=== PATIENT | female | born 1985 | race Caucasian/White ===

== ENCOUNTER 2021-11-07 22:19 | Inpatient (IN) | payer OTHER, MEDICAID, SELFPAY ==
[2021-11-07 22:31] VITALS: BP 124/75; PULSE 122; RESP 20; TEMP 36.6; O2SAT 91; BMI 55.7
--- NOTE | 2021-11-07 23:11 | DI.RAD.S_ITS ---
PROCEDURE: XR CHEST 1V INDICATIONS: shortness of breath TECHNIQUE: One view of the chest was acquired. COMPARISON: None. FINDINGS: Surgical changes and devices: None. Lungs and pleura: Diffuse interstitial prominence. Patchy opacities of the bilateral mid and lower lung zones. Suggestion of pulmonary vascular congestion. No focal consolidations. Small bilateral pleural effusions larger on the left. No pneumothorax. Mediastinum: Mediastinal contours appear normal. Heart size is enlarged. Bones and chest wall: No suspicious bony lesions. Overlying soft tissues appear unremarkable. IMPRESSION: Mild cardiomegaly with findings suggestive of pulmonary edema/CHF. Concurrent infectious or inflammatory process not excluded if clinically appropriate. Dictated by: Asim Rodriguez M.D. on 11/07/2021 at 23:42 Approved by: Asim Rodriguez M.D. on 11/07/2021 at 23:43
[2021-11-07 23:13] VITALS: PULSE 122; O2SAT 88
[2021-11-07 23:30] VITALS: BP 111/65; PULSE 119; O2SAT 93
[2021-11-07 23:40] LABS: Add Manual Diff / Slide Review NO; Basophils Absolute Auto 0 /uL (0-100); Basophils Percent Auto 0.1 % (0-2); Eosinophils Absolute Auto 0 /uL (0-450); Hematocrit 38.4 % (36-46); Hemoglobin 13.1 g/dL (12.0-16.0); Lymphocytes Absolute Auto 500 /uL (1100-4500); Lymphocytes Percent Auto 11.4 % (25-40); Mean Corpuscular HGB Conc 34.1 % (30-36); Mean Corpuscular Hemoglobin 29.1 PG (26-34); Mean Corpuscular Volume 85.4 fL (80-100); Monocytes Absolute Auto 100 /uL (0-900); Monocytes Percent Auto 2.6 % (3-14); Neutrophils Absolute Auto 3800 /uL (1500-7000); Neutrophils Percent Auto 85.9 % (50-75); Platelet Count 154 X10^3/uL (150-400); White Blood Cell Count 4.4 X10^3/uL (4.5-11.0)
[2021-11-07 23:45] VITALS: PULSE 112; O2SAT 94
[2021-11-07 23:47] LABS: Lactate (Lactic Acid) 1.3 mmol/L (0.7-2.1)
[2021-11-07 23:48] LABS: Alanine Aminotransferase 49 IU/L (<35); Albumin Globulin Ratio 1.2 (1.0-2.8); Alkaline Phosphatase 67 U/L (38-126); Aspartate Aminotransferase 57 IU/L (14-36); BUN Creatinine Ratio 9.4 (6-22); Bilirubin Total 0.5 mg/dL (0.2-1.3); Blood Urea Nitrogen 6 mg/dL (7-17); Calcium 8.9 mg/dL (8.4-10.2); Carbon Dioxide 29 mmol/L (22-32); Chloride 102 mmol/L (98-107); Estimated Glomerular Filt Rate > 60.0 mL/min (>60); Globulin 3.4 g/dL (1.7-4.1); Glucose 122 mg/dL (70-100); HEMOLYSIS < 15 (0-50); Potassium 3.9 mmol/L (3.4-5.1); Sodium 136 mmol/L (137-145); Total Protein 7.4 g/dL (6.3-8.2)
[2021-11-08] VITALS (68 sets, daily range): BP systolic 101–154; BP diastolic 56–94; PULSE 75–133; RESP 16–32; TEMP 37–37.5; O2SAT 86–97; BMI 55.6
[2021-11-08] MEDS: SODIUM CHLORIDE 0.9% 1,000 ML 1000 ML IV (00:31)
[2021-11-08 01:26] LABS: Lactate Dehydrogenase 824 U/L (313-618)
[2021-11-08 01:31] LABS: D Dimer < 200 ng/mL (<230)
[2021-11-08 02:11] LABS: Ferritin 225 ng/mL (6-137)
[2021-11-08] MEDS: DEXAMETHASONE 10 MG/ML VIAL 6 MG IV (03:14)
--- NOTE | 2021-11-08 05:36 | ED_ITS ---
HPI - URI/Sore Throat General Chief Complaint: Upper Respiratory Symptoms Stated Complaint: covid+/sob cough x5 days Time Seen by Provider: 11/07/21 22:51 Source: patient Mode of arrival: Ambulatory History of Present Illness HPI Narrative: 36-year-old female nonsmoker with history of asthma presents with a chief complaint of upwards of 1 week of increasing fatigue and shortness of breath with racing heart. She is unvaccinated and has been exposed to COVID. She was diagnosed as COVID positive over the week and and has seen her primary care provider but over the past day or 2 started having increasing shortness of breath with minimal exertion and because she lives on the [place] wanted to come and be seen. She has had subjective fever and chills, shortness of breath and racing are with some mild nausea. She denies any vomiting or diarrhea. She has been checking her pulse ox at home and frequently noted dipping into the 80s while at rest Related Data Home Medications Medication Instructions Recorded Confirmed diclofenac sodium 75 mg 75 mg PO BID 11/08/21 11/08/21 tablet,delayed release methocarbamol 750 mg tablet 750 mg PO Q6HR PRN 11/08/21 11/08/21 Allergies Allergy/AdvReac Type Severity Reaction Status Date / Time No Known Drug Allergies Allergy Verified 11/08/21 00:09 Review of Systems Review of Systems Narrative: GENERAL: See HPI HEENT: Denies sinus pain, ear pain, sore throat, difficulty swallowing, dizz iness. RESPIRATORY: See HPI CARDIOVASCULAR: Denies chest pain, palpitations, orthopnea, edema, GASTROINTESTINAL: Denies nausea, vomiting, abdominal pain, diarrhea, constipation, melena. : Denies dysuria, frequency, incontinence, hematuria, urinary retention. MUSCULOSKELETAL: denies weakness, joint pain, or bony pain SKIN: Denies rash, skin lesions, or other NEUROLOGIC: Denies weakness, headache, numbness, change in speech, confusion, seizures, incoordination. PSYCHIATRIC: No concerning psychosocial issues. 12 point review of systems is negative except for those stated above Patient History Family History (Updated 11/08/21 @ 12:53 by Damari Worthy MD) Mother Skin cancer Social History household members: spouse and family Smoking Status: Never smoker alcohol intake: current Smoking Status: Never smoker alcohol intake frequency: a few times a month Substance Use Type: does not use Exam Narrative Exam Narrative: GENERAL: [36 year old patient appears stated age. Well-developed patient, in mild distress. Increased work of breathing while at rest HEAD: Atraumatic. Normocephalic. EYES: Pupils equal round and reactive. Extraocular motions intact. No scleral icterus. No injection or drainage. ENT: Nose without bleeding, purulent drainage. Throat without erythema, tonsillar hypertrophy or exudate. Airway patent. NECK: Trachea midline. Non tender CARDIOVASCULAR: Tachycardic regular rhythm without murmurs, gallops, or rubs. RESPIRATORY: Slight increased work of breathing, faint crackles in bilateral bases, hypoxemic on room air to the mid to upper 80s GASTROINTESTINAL: Abdomen soft, non-tender, nondistended. EXTREMITIES: No edema or joint tenderness. BACK: Nontender without deformity or crepitance. No flank tenderness. NEURO: AOx3. SKIN: No rash or erythema of visible areas Initial Vital Signs Initial Vital Signs: Vital Signs Temperature 97.9 F 11/07/21 22:31 Pulse Rate 122 H 11/07/21 22:31 Respiratory Rate 20 11/07/21 22:31 Blood Pressure 124/75 11/07/21 22:31 Pulse Oximetry 91 11/07/21 22:31 Course Orders Ordered: Alprazolam (Alprazolam 0.25 Mg Tablet) 0.25 mg PO Q6H PRN PRN Reason: Anxiety Last Admin: 11/09/21 00:06 Dose: 0.25 mg Documented by: CWHITE Dexamethasone (Dexamethasone 10 Mg/Ml Vial) 6 mg IV DAILY [facility] Enoxaparin Sodium (Enoxaparin 40 Mg/0.4 Ml Syringe) 40 mg SUBCUT Q12HR [facility] Last Admin: 11/09/21 00:05 Dose: 40 mg Documented by: CWHITE Furosemide (Furosemide 20 Mg/2 Ml Vial) 20 mg IV DAILY [facility] Guaifenesin (Guaifenesin Er 600 Mg Tab) 600 mg PO Q12HR PRN PRN Reason: Cough Last Admin: 11/08/21 14:44 Dose: 600 mg Documented by: SHAMEKA Remdesivir 100 mg/ Sodium (Chloride) 250 mls @ 250 mls/hr IV DAILY [facility] Stop: 11/17/21 09:59 Discontinued Medications Dexamethasone (Dexamethasone 10 Mg/Ml Vial) 6 mg IV NOW ONE Stop: 11/08/21 03:05 Last Admin: 11/08/21 03:14 Dose: 6 mg Documented by: SALOME Enoxaparin Sodium (Enoxaparin 40 Mg/0.4 Ml Syringe) 40 mg SUBCUT DAILY [facility] Last Admin: 11/08/21 14:44 Dose: 40 mg Documented by: SHAMEKA Sodium Chloride (Normal Saline 0.9%) 1,000 mls @ 1,000 mls/hr IV BOLUS ONE Stop: 11/08/21 00:58 Last Infusion: 11/08/21 04:29 Dose: 0 mls/hr Documented by: Admin: 11/08/21 00:31 Dose: 1,000 mls/hr Documented by: TRAV Remdesivir 200 mg/ Sodium (Chloride) 250 mls @ 250 mls/hr IV NOW ONE Stop: 11/08/21 06:44 Last Infusion: 11/08/21 08:04 Dose: 0 mls/hr Documented by: Admin: 11/08/21 06:29 Dose: 250 mls/hr Documented by: SALOME Pantoprazole Sodium (Pantoprazole 40 Mg Vial) 40 mg IV NOW ONE Stop: 11/08/21 05:46 Last Admin: 11/08/21 06:31 Dose: 40 mg Documented by: SALOME Vital Signs Vital signs: Vital Signs - 8 hr 11/07/21 23:13 11/07/21 23:30 11/08/21 03:17 Temperature 99.5 F Pulse Rate 122 H 119 H Blood Pressure 111/65 Pulse Oximetry 88 L 93 MDM - URI/Sore Throat Lab Data Result diagrams: 11/07/21 23:25 11/07/21 23:25 Labs: Lab Results 11/07/21 11/07/21 11/07/21 Range/Units 23:25 23:25 23:25 WBC 4.4 L (4.5-11.0) X10^3/uL RBC 4.50 (4.0-5.2) X10^6/uL Hgb 13.1 (12.0-16.0) g/dL Hct 38.4 (36-46) % MCV 85.4 (80-100) fL MCH 29.1 (26-34) PG MCHC 34.1 (30-36) % RDW 14.0 (11.6-14.8) % Plt Count 154 (150-400) X10^3/uL Neut % (Auto) 85.9 H (50-75) % Lymph % (Auto) 11.4 L (25-40) % [place] % (Auto) 2.6 L (3-14) % Eos % (Auto) 0.0 L (2-4) % Baso % (Auto) 0.1 (0-2) % Neut # (Auto) 3800 (4963-8908) /uL Lymph # (Auto) 500 L (7627-9699) /uL [place] # (Auto) 100 (0-900) /uL Eos # (Auto) 0 (0-450) /uL Baso # (Auto) 0 (0-100) /uL D-Dimer (<230) ng/mL Sodium 136 L (137-145) mmol/L Potassium 3.9 (3.4-5.1) mmol/L Chloride 102 (98-107) mmol/L Carbon Dioxide 29 (22-32) mmol/L BUN 6 L (7-17) mg/dL Creatinine 0.64 (0.52-1.04) mg/dL Estimated GFR > 60.0 (>60) mL/min BUN/Creatinine Ratio 9.4 (6-22) Glucose 122 H (70-100) mg/dL Lactate 1.3 (0.7-2.1) mmol/L Calcium 8.9 (8.4-10.2) mg/dL Ferritin (6-137) ng/mL Total Bilirubin 0.5 (0.2-1.3) mg/dL AST 57 H (14-36) IU/L ALT 49 H (<35) IU/L Alkaline Phosphatase 67 (38-126) U/L Lactate Dehydrogenase (313-618) U/L Total Protein 7.4 (6.3-8.2) g/dL Albumin 4.0 (3.5-5.0) g/dL Globulin 3.4 (1.7-4.1) g/dL Albumin/Globulin Ratio 1.2 (1.0-2.8) 11/07/21 11/07/21 Range/Units 23:25 23:25 WBC (4.5-11.0) X10^3/uL RBC (4.0-5.2) X10^6/uL Hgb (12.0-16.0) g/dL Hct (36-46) % MCV (80-100) fL MCH (26-34) PG MCHC (30-36) % RDW (11.6-14.8) % Plt Count (150-400) X10^3/uL Neut % (Auto) (50-75) % Lymph % (Auto) (25-40) % [place] % (Auto) (3-14) % Eos % (Auto) (2-4) % Baso % (Auto) (0-2) % Neut # (Auto) (5973-8148) /uL Lymph # (Auto) (1073-3304) /uL [place] # (Auto) (0-900) /uL Eos # (Auto) (0-450) /uL Baso # (Auto) (0-100) /uL D-Dimer < 200 (<230) ng/mL Sodium (137-145) mmol/L Potassium (3.4-5.1) mmol/L Chloride (98-107) mmol/L Carbon Dioxide (22-32) mmol/L BUN (7-17) mg/dL Creatinine (0.52-1.04) mg/dL Estimated GFR (>60) mL/min BUN/Creatinine Ratio (6-22) Glucose (70-100) mg/dL Lactate (0.7-2.1) mmol/L Calcium (8.4-10.2) mg/dL Ferritin 225 H (6-137) ng/mL Total Bilirubin (0.2-1.3) mg/dL AST (14-36) IU/L ALT (<35) IU/L Alkaline Phosphatase (38-126) U/L Lactate Dehydrogenase 824 H (313-618) U/L Total Protein (6.3-8.2) g/dL Albumin (3.5-5.0) g/dL Globulin (1.7-4.1) g/dL Albumin/Globulin Ratio (1.0-2.8) Discharge Plan Departure Patient Disposition: Admitted As Inpatient Clinical Impression: COVID-19, Hypoxia Admit Date/Time: 11/08/21 09:56 Admit Provider: Damari Worthy
[2021-11-08] MEDS: REMDESIVIR 200 MG in SODIUM CHLORIDE 0.9% 210 ML 250 ML IV (06:29)
[2021-11-08] MEDS: PANTOPRAZOLE 40 MG VIAL IV (06:31)
--- NOTE | 2021-11-08 12:48 | P.HP_ITS ---
History of Present Illness History of Present Illness Date Patient Seen: 11/08/21 Time Patient Seen: 12:49 Chief complaint: covid+/sob cough x5 days Narrative: 36 y/o unvaccinated female with Morbid Obesity diagnosed with Covid about one week ago. ( By her PCP). She has had cough, fever, shortness of breath, headache, nausea, and diarrhea. The patient obtained a home O2 sat monitor and noted that her oxygen level fell to 80%. She was becoming more short of breath and presented to the ED for further evaluation. In the Emergency Department, she was given decadron and remdesivir. She was initially placed on 6 liters of oxygen but continue to desaturate, she was then placed on 50% High flow oxygen at 50 Liters with improvement of her oxygenation. HER WBC is 4.4, D-dimer less than 200, Chest Xray reveals the following: Mild cardiomegaly with findings suggestive of pulmonary edema/CHF.? Concurrent infectious or inflammatory process not excluded if clinically appropriate. ?Patient is admitted to the hospital for inpatient treatment of acute hypoxic respiratory failure secondary to Covid-19 pneumonia. Patient History Family & Social History Family History (Updated 11/08/21 @ 12:53 by Damari Worthy MD) Mother Skin cancer Safety & Behavioral: Feels Safe in Current Yes Environment Tobacco & Substance use: Smoking Status Never smoker alcohol intake frequency a few times a month Substance Use Type does not use Meds Home Medications and Allergies Home Medications Medication Instructions Recorded Confirmed Type diclofenac sodium 75 mg 75 mg PO BID 11/08/21 11/08/21 History tablet,delayed release methocarbamol 750 mg tablet 750 mg PO Q6HR PRN 11/08/21 11/08/21 History Allergies Allergy/AdvReac Type Severity Reaction Status Date / Time No Known Drug Allergies Allergy Verified 11/08/21 00:09 Review of Systems Review of Systems Narrative: 10 point review of system negative except as above Exam Vital Signs (past 8 hours): - 11/08/21 05:00 11/08/21 05:15 11/08/21 05:30 Pulse Rate 132 H 125 H 122 H Respiratory Rate Blood Pressure Pulse Oximetry 88 L 89 L 91 11/08/21 05:45 11/08/21 06:00 11/08/21 06:15 Pulse Rate 122 H 126 H 126 H Respiratory Rate Blood Pressure Pulse Oximetry 92 90 L 91 11/08/21 06:30 11/08/21 06:45 11/08/21 07:00 Pulse Rate 119 H 114 H 110 H Respiratory Rate Blood Pressure Pulse Oximetry 90 L 91 89 L 11/08/21 07:15 11/08/21 07:30 11/08/21 07:45 Pulse Rate 111 H 112 H 121 H Respiratory Rate Blood Pressure Pulse Oximetry 90 L 90 L 89 L 11/08/21 07:57 11/08/21 08:00 11/08/21 08:15 Pulse Rate 121 H 121 H 124 H Respiratory Rate Blood Pressure 130/67 Pulse Oximetry 89 L 90 L 86 L 11/08/21 08:30 11/08/21 08:45 11/08/21 09:00 Pulse Rate 112 H 110 H 117 H Respiratory Rate Blood Pressure Pulse Oximetry 89 L 89 L 89 L 11/08/21 09:15 11/08/21 09:30 11/08/21 09:45 Pulse Rate 114 H 117 H 111 H Respiratory Rate Blood Pressure 122/63 Pulse Oximetry 90 L 87 L 87 L 11/08/21 10:00 11/08/21 10:15 11/08/21 10:30 Pulse Rate 104 H 111 H 99 H Respiratory Rate 24 Blood Pressure 116/59 L 120/67 Pulse Oximetry 90 L 91 92 11/08/21 10:45 11/08/21 11:00 11/08/21 11:15 Pulse Rate 99 H 97 H 99 H Respiratory Rate Blood Pressure 114/67 Pulse Oximetry 93 93 96 11/08/21 11:30 11/08/21 11:45 Pulse Rate 101 H 102 H Respiratory Rate Blood Pressure 110/56 L Pulse Oximetry 94 95 Oxygen Delivery Method High Flow Nasal Cannula Oxygen Flow Rate 50 Narrative Exam Narrative: Obese Female Lying on her stomach in no distress on high flow oxygen HENMT Other: NC/AT, PERRL, EOMI, ORopharynx with moist mucus membranes, Neck Other: Neck supple, no adenopathy, no thyromegaly Resp Other: Decreased breath sounds with poor airway movement, no wheezing, rhonchi, or crackles Cardio Other: Tachycardic, normal Sl S2 no murmurs, rubs, or gallops GI Other: soft/ non tender/ non distended No hepatosplenomegaly no rebound tenderness Skin Other: Multiple tattoos of arms and legs Neuro Other: Non focal Extrem Other: no edema Objective Labs Result Diagrams: 11/07/21 23:25 11/07/21 23:25 Labs: Laboratory Results - last 24 hr 11/07/21 11/07/21 11/07/21 23:25 23:25 23:25 WBC 4.4 L RBC 4.50 Hgb 13.1 Hct 38.4 MCV 85.4 MCH 29.1 MCHC 34.1 RDW 14.0 Plt Count 154 Neut % (Auto) 85.9 H Lymph % (Auto) 11.4 L [place] % (Auto) 2.6 L Eos % (Auto) 0.0 L Baso % (Auto) 0.1 Neut # (Auto) 3800 Lymph # (Auto) 500 L [place] # (Auto) 100 Eos # (Auto) 0 Baso # (Auto) 0 D-Dimer Sodium 136 L Potassium 3.9 Chloride 102 Carbon Dioxide 29 BUN 6 L Creatinine 0.64 Estimated GFR > 60.0 BUN/Creatinine Ratio 9.4 Glucose 122 H Lactate 1.3 Calcium 8.9 Ferritin Total Bilirubin 0.5 AST 57 H ALT 49 H Alkaline Phosphatase 67 Lactate Dehydrogenase Total Protein 7.4 Albumin 4.0 Globulin 3.4 Albumin/Globulin Ratio 1.2 11/07/21 11/07/21 23:25 23:25 WBC RBC Hgb Hct MCV MCH MCHC RDW Plt Count Neut % (Auto) Lymph % (Auto) [place] % (Auto) Eos % (Auto) Baso % (Auto) Neut # (Auto) Lymph # (Auto) [place] # (Auto) Eos # (Auto) Baso # (Auto) D-Dimer < 200 Sodium Potassium Chloride Carbon Dioxide BUN Creatinine Estimated GFR BUN/Creatinine Ratio Glucose Lactate Calcium Ferritin 225 H Total Bilirubin AST ALT Alkaline Phosphatase Lactate Dehydrogenase 824 H Total Protein Albumin Globulin Albumin/Globulin Ratio Assessment & Plan Assessment & Plan narrative: 36 y/o female unvaccinated COVID-19 + admitted for Acute Hypoxic Respiratory Failure -Patient is markedly hypoxic, now requiring high-flow oxygen -inflammatory markers elevated to include, LDH 824, Ferritin 124 -d-DIMER Normal -will continue dexamethasone, remdesivir -will add baricitnib -Lovenox for DVT prophylaxis -patient indicates she would want intubation/tracheostomy/if needed. -I have utilized all available methods to review, update, and confirm the patients current medications. -Patient will be admitted as an inpatient COVID-19 COVID-19 status: Positive Time Spent With Patient Critical Care time: I spent a total of [] minutes of critical care time on this patient's care today; this time is exclusive of procedural time. Quality MIPS - Admit I confirm the patient?s Advance Care Plan is present, Code status is documented, Surrogate decision maker is in patient?s record [If Yes, STOP here]: Yes
--- NOTE | 2021-11-08 13:57 | DI.US.S_ITS ---
PROCEDURE: US PERIPH VENOUS LOW EXTREM BI INDICATIONS: Swelling TECHNIQUE: Real-time imaging, as well as color and pulse Doppler interrogation, were performed of the deep veins of both legs from the inguinal ligament to the popliteal fossa. COMPARISON: None. FINDINGS: Right: The common femoral, femoral and popliteal veins are normally compressible, and free of intraluminal thrombus. Color and pulse Doppler demonstrate normal phasic intravascular flow. There is normal augmentation response to distal compression maneuver. Left: The common femoral, femoral and popliteal veins are normally compressible, and free of intraluminal thrombus. Color and pulse Doppler demonstrate normal phasic intravascular flow. There is normal augmentation response to distal compression maneuver. IMPRESSION: Negative for deep venous thrombosis in the bilateral lower extremities. Dictated by: Asim Rodriguez M.D. on 11/08/2021 at 21:26 Approved by: Asim Rodriguez M.D. on 11/08/2021 at 21:35
--- NOTE | 2021-11-08 14:06 | P.TELICUCN_ITS ---
History of Present Illness Consult details Chief complaint: covid+/sob cough x5 days :: This patient was seen via real time interactive two-way audiovisual telecommunication. Narrative: Patient is a 36 year old morbidly obese female presents with cough and shortness of breath. Patient was diagnosed with COVID-19 last week and noticed her oxygen saturation dipping down to the 80s on home oxygen saturation monitor. On presentation she was placed on 6 liters NC which quickly escalated to HFNC 50/50%. CXR personally reviewed -> patchy bilateral reticular changes. She was started on decadron, remdesivir, and baricitinib. Admitted to ICU for further management. FORMERLY [facility], [facility] Family History (Updated 11/08/21 @ 12:53 by Damari Worthy MD) Mother Skin cancer Social History Smoking Status: Never smoker Current Medications Current Medications Medications: Home Medications diclofenac sodium 75 mg tablet,delayed release 75 mg PO BID 11/08/21 [History Confirmed 11/08/21] methocarbamol 750 mg tablet 750 mg PO Q6HR PRN 11/08/21 [History Confirmed 11/08/21] Exam Vital Signs (past 8 hours): - 11/08/21 06:15 11/08/21 06:30 11/08/21 06:45 Pulse Rate 126 H 119 H 114 H Respiratory Rate Blood Pressure Pulse Oximetry 91 90 L 91 11/08/21 07:00 11/08/21 07:15 11/08/21 07:30 Pulse Rate 110 H 111 H 112 H Respiratory Rate Blood Pressure Pulse Oximetry 89 L 90 L 90 L 11/08/21 07:45 11/08/21 07:57 11/08/21 08:00 Pulse Rate 121 H 121 H 121 H Respiratory Rate Blood Pressure 130/67 Pulse Oximetry 89 L 89 L 90 L 11/08/21 08:15 11/08/21 08:30 11/08/21 08:45 Pulse Rate 124 H 112 H 110 H Respiratory Rate Blood Pressure Pulse Oximetry 86 L 89 L 89 L 11/08/21 09:00 11/08/21 09:15 11/08/21 09:30 Pulse Rate 117 H 114 H 117 H Respiratory Rate Blood Pressure Pulse Oximetry 89 L 90 L 87 L 11/08/21 09:45 11/08/21 10:00 11/08/21 10:15 Pulse Rate 111 H 104 H 111 H Respiratory Rate 24 Blood Pressure 122/63 116/59 L Pulse Oximetry 87 L 90 L 91 11/08/21 10:30 11/08/21 10:45 11/08/21 11:00 Pulse Rate 99 H 99 H 97 H Respiratory Rate Blood Pressure 120/67 114/67 Pulse Oximetry 92 93 93 11/08/21 11:15 11/08/21 11:30 11/08/21 11:45 Pulse Rate 99 H 101 H 102 H Respiratory Rate Blood Pressure 110/56 L Pulse Oximetry 96 94 95 11/08/21 12:00 11/08/21 12:01 11/08/21 12:15 Pulse Rate 111 H 113 H 101 H Respiratory Rate 24 Blood Pressure 149/66 H Pulse Oximetry 93 91 11/08/21 12:30 11/08/21 12:45 11/08/21 13:00 Pulse Rate 98 H 114 H 103 H Respiratory Rate Blood Pressure Pulse Oximetry 93 91 88 L 11/08/21 13:04 11/08/21 13:15 Pulse Rate 100 H 97 H Respiratory Rate Blood Pressure 101/58 L Pulse Oximetry 90 L 92 Oxygen Delivery Method High Flow Nasal Cannula Oxygen Flow Rate 50 Narrative Exam Narrative: Morbidly obese on HFNC and NAD Objective Labs Result Diagrams: 11/07/21 23:25 11/07/21 23:25 Labs: Laboratory Results - last 24 hr 11/07/21 11/07/21 11/07/21 23:25 23:25 23:25 WBC 4.4 L RBC 4.50 Hgb 13.1 Hct 38.4 MCV 85.4 MCH 29.1 MCHC 34.1 RDW 14.0 Plt Count 154 Neut % (Auto) 85.9 H Lymph % (Auto) 11.4 L [place] % (Auto) 2.6 L Eos % (Auto) 0.0 L Baso % (Auto) 0.1 Neut # (Auto) 3800 Lymph # (Auto) 500 L [place] # (Auto) 100 Eos # (Auto) 0 Baso # (Auto) 0 D-Dimer Sodium 136 L Potassium 3.9 Chloride 102 Carbon Dioxide 29 BUN 6 L Creatinine 0.64 Estimated GFR > 60.0 BUN/Creatinine Ratio 9.4 Glucose 122 H Lactate 1.3 Calcium 8.9 Ferritin Total Bilirubin 0.5 AST 57 H ALT 49 H Alkaline Phosphatase 67 Lactate Dehydrogenase Total Protein 7.4 Albumin 4.0 Globulin 3.4 Albumin/Globulin Ratio 1.2 11/07/21 11/07/21 23:25 23:25 WBC RBC Hgb Hct MCV MCH MCHC RDW Plt Count Neut % (Auto) Lymph % (Auto) [place] % (Auto) Eos % (Auto) Baso % (Auto) Neut # (Auto) Lymph # (Auto) [place] # (Auto) Eos # (Auto) Baso # (Auto) D-Dimer < 200 Sodium Potassium Chloride Carbon Dioxide BUN Creatinine Estimated GFR BUN/Creatinine Ratio Glucose Lactate Calcium Ferritin 225 H Total Bilirubin AST ALT Alkaline Phosphatase Lactate Dehydrogenase 824 H Total Protein Albumin Globulin Albumin/Globulin Ratio Assessment & Plan Assessment and plan (1) Acute respiratory failure with hypoxemia: Status: Acute (2) COVID-19: Status: Acute (3) Pneumonia due to coronavirus disease 2019: Status: Acute (4) Morbid obesity: Status: Acute Assessment & Plan narrative: RESP: # Acute hypoxemia respiratory failure -- Secondary to COVID pneumonia -- COVID rx as below -- Start gentle diuresis -- On HFNC 50/50% -- RT to titrate down FiO2 and flow to maintain goal SpO2 > 90% -- Encourage self proning -- Encourage early ambulation as tolerated to prevent atelectasis ID: # COVID PNA -- Trend CRP, LDH, ferritin, and LFTs -- Risk factors -> morbid obesity -- Agree with remdesivir, baricitinib and decadron -- Start gentle diuresis to seek net negative fluid balance -- Check venous duplex -- On strict contact, droplet/airborne, eye protection, and critical meticulous hand hygiene ENDO: -- Goal BS < 180] D/w RN at bedside. Time Spent With Patient Critical Care time: I spent a total of [] minutes of critical care time on this patient's care today; this time is exclusive of procedural time.
[2021-11-08 14:37] LABS: COVID19 - ADMIT (NP swab/PCR) POSITIVE (Negative)
[2021-11-08] MEDS: ENOXAPARIN 40 MG/0.4 ML SYRINGE SUBCUT (14:44)
[2021-11-08] MEDS: BARICITINIB 2 MG TABLET 4 MG PO (14:44)
[2021-11-08] MEDS: guaiFENesin ER 600 MG TAB PO (14:44)
--- NOTE | 2021-11-08 17:34 | PC.NURSE ---
Admit Note Patient arrived to room 227 from ER at 1415 via stretcher. Walked self from stretcher to bed with no issues. Placed on heated HFNC 50L and 50% FiO2, SpO2 93%. Pt reports shortness of breath improved. Productive and frequent cough, white/yellow sputum. Lungs decreased bilaterally. Oriented to room and to plan of care. Oriented to bed/tv/call light controls. Call light within reach. Wallet locked in hospital safe. Cell phone, glasses, electronic tablet, and chargers x2 at bedside. Purse, clothing, shoes in room closet. Tele ICU MD Dr. Haynes in room at time of admission via video monitor in room. Patient walking independently to bathroom, desats to 84% but quickly recovers to mid-90s.
[2021-11-09] VITALS (18 sets, daily range): BP systolic 115–146; BP diastolic 66–88; PULSE 86–114; RESP 13–23; TEMP 36.8–37.3; O2SAT 89–95
--- NOTE | 2021-11-09 00:01 | PM.ICURNDS ---
- Date Patient Seen: 11/09/21 Time Patient Seen: 00:00 :: This patient was seen via real time interactive two-way audiovisual telecommunication. Note: Morbidly obese vaccinated female with COVID-19 induced acute hypoxic respiratory failure being treated with remdesivir, dexamethasone and baricitinib. She is on HFNC 50L and 50% FiO2. This just had to be increased due to a desaturation event and anxiety; currently at 55 L/min 55% FiO2. Have order Xanax PRN; if this fails, will attempt Precedex drip. Enoxaparin VTE chemoprophylaxis increased to q12H due to body habitus, not COVID-19 (admission D-dimer < 500).
[2021-11-09] MEDS: ENOXAPARIN 40 MG/0.4 ML SYRINGE SUBCUT ×3 (00:05→23:21)
[2021-11-09] MEDS: ALPRAZolam 0.25 MG TABLET PO ×4 (00:06→23:22)
[2021-11-09 04:56] LABS: Add Manual Diff / Slide Review NO; Basophils Absolute Auto 0 /uL (0-100); Basophils Percent Auto 0.2 % (0-2); Eosinophils Absolute Auto 0 /uL (0-450); Eosinophils Percent Auto 0.1 % (2-4); Hematocrit 36.6 % (36-46); Hemoglobin 12.4 g/dL (12.0-16.0); Lymphocytes Absolute Auto 1500 /uL (1100-4500); Lymphocytes Percent Auto 37.6 % (25-40); Mean Corpuscular HGB Conc 33.8 % (30-36); Mean Corpuscular Hemoglobin 28.8 PG (26-34); Mean Corpuscular Volume 85.2 fL (80-100); Monocytes Absolute Auto 200 /uL (0-900); Monocytes Percent Auto 5.2 % (3-14); Neutrophils Absolute Auto 2300 /uL (1500-7000); Neutrophils Percent Auto 56.9 % (50-75); Platelet Count 158 X10^3/uL (150-400); Red Blood Cell Count 4.29 X10^6/uL (4.0-5.2); Red Cell Distribution Width 14.2 % (11.6-14.8)
[2021-11-09 05:03] LABS: Alanine Aminotransferase 43 IU/L (<35); Albumin 3.5 g/dL (3.5-5.0); Albumin Globulin Ratio 1.1 (1.0-2.8); Alkaline Phosphatase 55 U/L (38-126); Aspartate Aminotransferase 71 IU/L (14-36); BUN Creatinine Ratio 16.7 (6-22); Bilirubin Total 0.4 mg/dL (0.2-1.3); Blood Urea Nitrogen 11 mg/dL (7-17); Calcium 8.2 mg/dL (8.4-10.2); Carbon Dioxide 32 mmol/L (22-32); Chloride 100 mmol/L (98-107); Estimated Glomerular Filt Rate > 60.0 mL/min (>60); Globulin 3.2 g/dL (1.7-4.1); Glucose 96 mg/dL (70-100); HEMOLYSIS < 15 (0-50); Magnesium 2.4 mg/dL (1.6-2.3); Potassium 3.6 mmol/L (3.4-5.1); Sodium 135 mmol/L (137-145); Total Protein 6.7 g/dL (6.3-8.2)
[2021-11-09 05:32] LABS: Thyroid Stimulating Hormone 2.64 uIU/mL (0.47-4.68)
[2021-11-09] MEDS: guaiFENesin ER 600 MG TAB PO ×2 (08:31→20:06)
[2021-11-09] MEDS: REMDESIVIR 100 MG in SODIUM CHLORIDE 0.9% 230 ML 250 ML IV (08:31)
[2021-11-09] MEDS: DEXAMETHASONE 10 MG/ML VIAL 6 MG IV (08:31)
[2021-11-09] MEDS: FUROSEMIDE 20 MG/2 ML VIAL IV (08:31)
[2021-11-09] MEDS: BARICITINIB 2 MG TABLET 4 MG PO (08:31)
--- NOTE | 2021-11-09 09:40 | PM.PN.EICU ---
Subjective Subjective :: This patient was seen via real time interactive two-way audiovisual telecommunication. On HFNC 50/55%. Started on xanax for anxiety. No acute issues overnight. Current Medications Current Medications Medications: Home Medications diclofenac sodium 75 mg tablet,delayed release 75 mg PO BID 11/08/21 [History Confirmed 11/08/21] methocarbamol 750 mg tablet 750 mg PO Q6HR PRN 11/08/21 [History Confirmed 11/08/21] Visit Medications (administered) Generic Name Dose Route Start Last Admin Trade Name Freq PRN Reason Stop Dose Admin Alprazolam 0.25 mg 11/08/21 23:59 11/09/21 07:02 Alprazolam 0.25 Mg Tablet PO 0.25 mg Q6H PRN Administration Anxiety Dexamethasone 6 mg 11/09/21 09:00 11/09/21 08:31 Dexamethasone 10 Mg/Ml Vial IV 6 mg DAILY CORWIN Administration Enoxaparin Sodium 40 mg 11/09/21 00:00 11/09/21 00:05 Enoxaparin 40 Mg/0.4 Ml Syringe SUBCUT 40 mg Q12HR CORWIN Administration Furosemide 20 mg 11/09/21 09:00 11/09/21 08:31 Furosemide 20 Mg/2 Ml Vial IV 20 mg DAILY CORWIN Administration Guaifenesin 600 mg 11/08/21 14:32 11/09/21 08:31 Guaifenesin Er 600 Mg Tab PO 600 mg Q12HR PRN Administration Cough Remdesivir 100 mg/ Sodium 250 mls @ 250 mls/hr 11/09/21 09:00 11/09/21 08:31 Chloride IV 11/17/21 09:59 250 mls/hr DAILY CORWIN Administration Objective Ventilator Parameters: Ventilator Settings FiO2 50 Labs Result Diagrams: 11/09/21 04:30 11/09/21 04:30 Labs: Laboratory Results - last 24 hr 11/08/21 11/08/21 11/09/21 13:17 14:15 04:30 WBC 4.0 L RBC 4.29 Hgb 12.4 Hct 36.6 MCV 85.2 MCH 28.8 MCHC 33.8 RDW 14.2 Plt Count 158 Neut % (Auto) 56.9 D Lymph % (Auto) 37.6 D [place] % (Auto) 5.2 Eos % (Auto) 0.1 L Baso % (Auto) 0.2 Neut # (Auto) 2300 Lymph # (Auto) 1500 [place] # (Auto) 200 Eos # (Auto) 0 Baso # (Auto) 0 Sodium Potassium Chloride Carbon Dioxide BUN Creatinine Estimated GFR BUN/Creatinine Ratio Glucose Calcium Magnesium Total Bilirubin AST ALT Alkaline Phosphatase Total Protein Albumin Globulin Albumin/Globulin Ratio TSH Nasal Screen MRSA (PCR) Negative for mrsa SARS-CoV-2 (PCR) Positive H 11/09/21 11/09/21 04:30 04:30 WBC RBC Hgb Hct MCV MCH MCHC RDW Plt Count Neut % (Auto) Lymph % (Auto) [place] % (Auto) Eos % (Auto) Baso % (Auto) Neut # (Auto) Lymph # (Auto) [place] # (Auto) Eos # (Auto) Baso # (Auto) Sodium 135 L Potassium 3.6 Chloride 100 Carbon Dioxide 32 BUN 11 Creatinine 0.66 Estimated GFR > 60.0 BUN/Creatinine Ratio 16.7 Glucose 96 Calcium 8.2 L Magnesium 2.4 H Total Bilirubin 0.4 AST 71 H ALT 43 H Alkaline Phosphatase 55 Total Protein 6.7 Albumin 3.5 Globulin 3.2 Albumin/Globulin Ratio 1.1 TSH 2.64 Nasal Screen MRSA (PCR) SARS-CoV-2 (PCR) Exam Vital Signs (past 8 hours): - 11/09/21 01:59 11/09/21 04:00 11/09/21 05:55 Temperature 99.2 F Pulse Rate 102 H 91 H 86 Respiratory Rate 18 20 20 Blood Pressure 146/88 H 132/86 Pulse Oximetry 94 94 93 11/09/21 07:36 11/09/21 07:45 Temperature 98.7 F Pulse Rate 99 H 100 H Respiratory Rate 20 22 Blood Pressure 127/76 127/76 Pulse Oximetry 92 92 Fraction of Inspired Oxygen 55 Oxygen Delivery Method Heated High Flow Oxygen Flow Rate 50 Narrative Exam Narrative: Anxious and speaking in full sentence. Quality TeleICU VTE Deep Vein Thrombosis/Pulmonary Embolism Present on Admission: No Assessment & Plan Assessment & Plan narrative: RESP: # Acute hypoxemia respiratory failure -- Secondary to COVID pneumonia -- COVID rx as below -- Added xanax overnight for anxiety -- Cont gentle diuresis -- On HFNC 50/55% -- RT to titrate down FiO2 and flow to maintain goal SpO2 > 90% -- Cont self proning -- Encourage early ambulation as tolerated to prevent atelectasis ID: # COVID PNA -- Trend CRP, LDH, ferritin, and LFTs -- Risk factors -> morbid obesity -- Cont remdesivir, baricitinib and decadron --Cont gentle diuresis to seek net negative fluid balance -- Venous duplex negative for DVT -- On lovenox 40 BID -- On strict contact, droplet/airborne, eye protection, and critical meticulous hand hygiene ENDO: -- Goal BS < 180 D/w RN and RT Time Spent With Patient Critical Care time: I spent a total of [] minutes of critical care time on this patient's care today; this time is exclusive of procedural time.
[2021-11-09] MEDS: SODIUM CHLORIDE NASAL SPRAY 1 SPRAY NASAL (11:09)
[2021-11-09] MEDS: POTASSIUM CHLORIDE 20 MEQ TAB PO (11:09)
[2021-11-09] MEDS: LORazepam 2 MG/ML INJ 1 MG IV ×2 (14:01→20:05)
[2021-11-09 14:31] LABS: D Dimer 344 ng/mL (<230)
--- NOTE | 2021-11-09 15:52 | P.PN_ITS ---
Subjective Subjective Date Patient Seen: 11/09/21 Interval history: The patient is 36-year-old female unvaccinated admitted to the hospital with acute hypoxic respiratory failure due to COVID 19. Patient continues to require high-flow oxygen. She is pronating regularly. She is anxious at times. She does note that steroids tend to make her more anxious. She has no cough. She complains of feeling like she can not take a deep breath in. Exam Vital Signs (past 8 hours): - 11/09/21 09:33 11/09/21 11:00 11/09/21 11:39 Pulse Rate 105 H 105 H 106 H Respiratory Rate 20 22 Blood Pressure 138/84 138/84 Pulse Oximetry 95 94 93 11/09/21 13:00 11/09/21 13:29 Pulse Rate 94 H Respiratory Rate 20 Blood Pressure 138/84 Pulse Oximetry 92 93 Fraction of Inspired Oxygen 0.60 Oxygen Delivery Method Heated High Flow Oxygen Flow Rate 50 Narrative Exam Narrative: Obese female lying in bed in no obvious distress Resp Other: Lungs decreased breath sounds but clear to auscultation Cardio Other: Cardiac exam: Tachycardic regular rate and rhythm normal S1-S2 GI Other: Abdomen soft and nontender Extrem Other: Extremity no edema Objective Labs Result Diagrams: 11/09/21 04:30 11/09/21 04:30 Labs: Laboratory Results - last 24 hr 11/08/21 11/09/21 11/09/21 14:15 04:30 04:30 WBC 4.0 L RBC 4.29 Hgb 12.4 Hct 36.6 MCV 85.2 MCH 28.8 MCHC 33.8 RDW 14.2 Plt Count 158 Neut % (Auto) 56.9 D Lymph % (Auto) 37.6 D [place] % (Auto) 5.2 Eos % (Auto) 0.1 L Baso % (Auto) 0.2 Neut # (Auto) 2300 Lymph # (Auto) 1500 [place] # (Auto) 200 Eos # (Auto) 0 Baso # (Auto) 0 D-Dimer Sodium 135 L Potassium 3.6 Chloride 100 Carbon Dioxide 32 BUN 11 Creatinine 0.66 Estimated GFR > 60.0 BUN/Creatinine Ratio 16.7 Glucose 96 Calcium 8.2 L Magnesium 2.4 H Total Bilirubin 0.4 AST 71 H ALT 43 H Alkaline Phosphatase 55 Total Protein 6.7 Albumin 3.5 Globulin 3.2 Albumin/Globulin Ratio 1.1 TSH Nasal Screen MRSA (PCR) Negative for mrsa 11/09/21 11/09/21 04:30 14:15 WBC RBC Hgb Hct MCV MCH MCHC RDW Plt Count Neut % (Auto) Lymph % (Auto) [place] % (Auto) Eos % (Auto) Baso % (Auto) Neut # (Auto) Lymph # (Auto) [place] # (Auto) Eos # (Auto) Baso # (Auto) D-Dimer 344 H Sodium Potassium Chloride Carbon Dioxide BUN Creatinine Estimated GFR BUN/Creatinine Ratio Glucose Calcium Magnesium Total Bilirubin AST ALT Alkaline Phosphatase Total Protein Albumin Globulin Albumin/Globulin Ratio TSH 2.64 Nasal Screen MRSA (PCR) PFSH Family History (Updated 11/08/21 @ 12:53 by Damari Worthy MD) Mother Skin cancer Social History household members: spouse and family Smoking Status: Never smoker alcohol intake: current Assessment & Plan Assessment & Plan narrative: 36 y/o female unvaccinated COVID-19 + admitted for Acute Hypoxic Respiratory F ailure -Patient is markedly hypoxic, now requiring high-flow oxygen -inflammatory markers elevated to include, LDH 824, Ferritin 124 -d-DIMER Normal, increased to 334 today, on BID dosing of lovenox -will continue dexamethasone, remdesivir -will add baricitnib -Lovenox for DVT prophylaxis -patient indicates she would want intubation/tracheostomy/if needed. Anxiety -ativan as needed Morbid Obesity -dietary consult -I have utilized all available methods to review, update, and confirm the patients current medications. -Patient will be admitted as an inpatient Time Spent With Patient Critical Care time: I spent a total of [] minutes of critical care time on this patient's care today; this time is exclusive of procedural time. Quality VTE Deep Vein Thrombosis/Pulmonary Embolism Present on Admission: No
--- NOTE | 2021-11-09 16:23 | CM.DANOTE ---
DCP/Assessment: Reviewed chart. Patient is a 36yr old female admitted to [facility] with COVID+. PCP is [facility]) on [place]. Primary payor is 1[facility] 2)Medicaid. Spoke briefly with RN this afternoon. Patient currently on 50 liters of heated high flow 02. At this time it is not appropriate for CM food service team member to call patient in room. RN reports patient somewhat anxious. Patient obese and weighs approximately 376lbs. RN believes that patient very I prior to admit. Patient has child and significant other at home, both whom are currently sick. P: Anticipate home when stable. CM team following closely for d/c planning needs. [facility] Discharge Planning/Care Management CM Discharge Assessment Start: 11/09/21 16:20 Freq: Status: Active Protocol: Document 11/09/21 16:21 [facility] (Rec: 11/09/21 16:23 [facility] [id number]) Discharge Planning Assessment Assigned Silk Soaker BRAXTON [place] Contact Information Koby Daugherty (significant other) # [phone] Advance Directives? No History Provided By Medical Record Prior Living Arrangements House Household Members spouse,family Type of transporation used prior to Drives own vehicle admit Independent with ADL's Yes Is patient alert and oriented? Currently on heated high flow 02 Caregiver for Another Yes: Child at home per nursing Barriers to Discharge No Discharge Plan Home Transportation Arrangement Family/signficant other to provide transport. Referrals Initiated Other Review Status In Process Next Review Type Continued Stay Review
--- NOTE | 2021-11-09 17:57 | PC.NURSE ---
Day Shift Note Patient on heated HFNC, slightly increased requirements throughout shift. Currently at 50L and 65% FiO2. SpO2 90-92% when sitting up, desats to mid-80s with activity. Patient with increasing anxiety related to feeling of the heated HFNC, lack of progress, and exacerbated by steroids per pt. Ativan 1 mg IV given in addition to prn xanax per Dr. Worthy and time spent with pt explaining plan of care, instruction on deep breathing, and need to prone or side lie as often as able. Patient acknowledged understanding and stated goal to prone or side lie whenever not sitting up and eating. Several 100% O2 flushes administered during this time of discussion as anxiety eased. Pt to side and SpO2 increased to 96% while on 65% FiO2. Provided this feedback to pt, pt reports feeling less anxious at this time. Leno Whalen updated via phone per pt request.
[2021-11-09 18:22] LABS: HEMOLYSIS 22 (0-50); Potassium 3.9 mmol/L (3.4-5.1)
--- NOTE | 2021-11-09 22:14 | PM.ICURNDS ---
- Date Patient Seen: 11/09/21 Time Patient Seen: 10:14 :: This patient was seen via real time interactive two-way audiovisual telecommunication. Note: Case discussed with RN. 36 y.o. female with morbid obesity and COVID-19 induced acute hypoxic respiratory failure. She is self-proning and is currently on HFNC 50 L 65% with RR in 20 and o2 saturation in low 90s. She is requiring PO Xanax and Ativan for anxiety as she is frequently checking her vitals on the bedside monitor. She was started on Lasix 20 mg IV daily earlier today. Overall condition is about the same as yesterday.
[2021-11-10] VITALS (19 sets, daily range): BP systolic 98–143; BP diastolic 58–85; PULSE 71–105; RESP 18–49; TEMP 36.4–36.8; O2SAT 88–96
[2021-11-10 05:08] LABS: Add Manual Diff / Slide Review NO; Basophils Absolute Auto 0 /uL (0-100); Basophils Percent Auto 0.3 % (0-2); Eosinophils Absolute Auto 0 /uL (0-450); Eosinophils Percent Auto 0.1 % (2-4); Hematocrit 37.5 % (36-46); Hemoglobin 12.5 g/dL (12.0-16.0); Lymphocytes Absolute Auto 1400 /uL (1100-4500); Lymphocytes Percent Auto 33.3 % (25-40); Mean Corpuscular HGB Conc 33.4 % (30-36); Mean Corpuscular Hemoglobin 28.5 PG (26-34); Mean Corpuscular Volume 85.3 fL (80-100); Monocytes Absolute Auto 300 /uL (0-900); Monocytes Percent Auto 6.7 % (3-14); Neutrophils Absolute Auto 2500 /uL (1500-7000); Neutrophils Percent Auto 59.6 % (50-75); Platelet Count 188 X10^3/uL (150-400); Red Blood Cell Count 4.39 X10^6/uL (4.0-5.2); Red Cell Distribution Width 13.9 % (11.6-14.8); White Blood Cell Count 4.2 X10^3/uL (4.5-11.0)
[2021-11-10 05:14] LABS: Alanine Aminotransferase 69 IU/L (<35); Albumin 3.4 g/dL (3.5-5.0); Albumin Globulin Ratio 1.1 (1.0-2.8); Alkaline Phosphatase 54 U/L (38-126); Aspartate Aminotransferase 97 IU/L (14-36); BUN Creatinine Ratio 18.3 (6-22); Bilirubin Total 0.4 mg/dL (0.2-1.3); Blood Urea Nitrogen 11 mg/dL (7-17); Calcium 8.4 mg/dL (8.4-10.2); Carbon Dioxide 33 mmol/L (22-32); Chloride 101 mmol/L (98-107); Estimated Glomerular Filt Rate > 60.0 mL/min (>60); Globulin 3.2 g/dL (1.7-4.1); Glucose 98 mg/dL (70-100); HEMOLYSIS < 15 (0-50); Potassium 3.4 mmol/L (3.4-5.1); Sodium 136 mmol/L (137-145); Total Protein 6.6 g/dL (6.3-8.2)
--- NOTE | 2021-11-10 06:46 | PC.NURSE ---
End of Shift note: Pt developed a nose bleed after blowing her nose. Placed on a NRB mask and pressure held until active bleeding stopped. remains on the NRB at this time O2Sats 92%, Will replace HHFNC in an hour.
[2021-11-10] MEDS: ALPRAZolam 0.25 MG TABLET PO ×3 (07:27→21:50)
[2021-11-10] MEDS: BARICITINIB 2 MG TABLET 4 MG PO (09:01)
[2021-11-10] MEDS: guaiFENesin ER 600 MG TAB PO (09:01)
[2021-11-10] MEDS: FUROSEMIDE 20 MG/2 ML VIAL IV (09:02)
[2021-11-10] MEDS: DEXAMETHASONE 10 MG/ML VIAL 6 MG IV (09:02)
[2021-11-10] MEDS: REMDESIVIR 100 MG in SODIUM CHLORIDE 0.9% 230 ML 250 ML IV (11:03)
[2021-11-10] MEDS: POTASSIUM CHLORIDE 20 MEQ TAB 40 MEQ PO (11:04)
[2021-11-10] MEDS: ENOXAPARIN 40 MG/0.4 ML SYRINGE SUBCUT (11:15)
[2021-11-10] MEDS: ACETAMINOPHEN 325 MG TABLET 650 MG PO ×2 (11:23→17:22)
--- NOTE | 2021-11-10 11:44 | PM.PN.EICU ---
Subjective Subjective :: This patient was seen via real time interactive two-way audiovisual telecommunication. Current Medications Current Medications Medications: Home Medications diclofenac sodium 75 mg tablet,delayed release 75 mg PO BID 11/08/21 [History Confirmed 11/08/21] methocarbamol 750 mg tablet 750 mg PO Q6HR PRN 11/08/21 [History Confirmed 11/08/21] Visit Medications (administered) Generic Name Dose Route Start Last Admin Trade Name Freq PRN Reason Stop Dose Admin Acetaminophen 650 mg 11/10/21 11:19 11/10/21 11:23 Acetaminophen 325 Mg Tablet PO 650 mg Q4HR PRN Administration Fever/Mild Pain (1-3) Alprazolam 0.25 mg 11/08/21 23:59 11/10/21 07:27 Alprazolam 0.25 Mg Tablet PO 0.25 mg Q6H PRN Administration Anxiety Dexamethasone 6 mg 11/09/21 09:00 11/10/21 09:02 Dexamethasone 10 Mg/Ml Vial IV 6 mg DAILY CORWIN Administration Enoxaparin Sodium 40 mg 11/09/21 00:00 11/10/21 11:15 Enoxaparin 40 Mg/0.4 Ml Syringe SUBCUT 40 mg Q12HR CORWIN Administration Furosemide 20 mg 11/09/21 09:00 11/10/21 09:02 Furosemide 20 Mg/2 Ml Vial IV 20 mg DAILY CORWIN Administration Guaifenesin 600 mg 11/08/21 14:32 11/10/21 09:01 Guaifenesin Er 600 Mg Tab PO 600 mg Q12HR PRN Administration Cough Remdesivir 100 mg/ Sodium 250 mls @ 250 mls/hr 11/09/21 09:00 11/10/21 11:03 Chloride IV 11/17/21 09:59 250 mls/hr DAILY CORWIN Administration Lorazepam 1 mg 11/09/21 18:10 11/09/21 20:05 Lorazepam 2 Mg/Ml Inj IV 1 mg Q6HR PRN Administration Anxiety Sodium Chloride 1 spray 11/09/21 10:40 11/09/21 11:09 Sodium Chloride Nasal Eldena NASAL 1 spray PRN PRN Administration Congestion Objective Ventilator Parameters: Ventilator Settings FiO2 50 Labs Result Diagrams: 11/10/21 04:35 11/10/21 04:35 Labs: Laboratory Results - last 24 hr 11/09/21 11/09/2122 14:15 18:05 04:35 WBC 4.2 L RBC 4.39 Hgb 12.5 Hct 37.5 MCV 85.3 MCH 28.5 MCHC 33.4 RDW 13.9 Plt Count 188 Neut % (Auto) 59.6 Lymph % (Auto) 33.3 [place] % (Auto) 6.7 Eos % (Auto) 0.1 L Baso % (Auto) 0.3 Neut # (Auto) 2500 Lymph # (Auto) 1400 [place] # (Auto) 300 Eos # (Auto) 0 Baso # (Auto) 0 D-Dimer 344 H Sodium Potassium 3.9 Chloride Carbon Dioxide BUN Creatinine Estimated GFR BUN/Creatinine Ratio Glucose Calcium Total Bilirubin AST ALT Alkaline Phosphatase Total Protein Albumin Globulin Albumin/Globulin Ratio 11/10/21 04:35 WBC RBC Hgb Hct MCV MCH MCHC RDW Plt Count Neut % (Auto) Lymph % (Auto) [place] % (Auto) Eos % (Auto) Baso % (Auto) Neut # (Auto) Lymph # (Auto) [place] # (Auto) Eos # (Auto) Baso # (Auto) D-Dimer Sodium 136 L Potassium 3.4 Chloride 101 Carbon Dioxide 33 H BUN 11 Creatinine 0.60 Estimated GFR > 60.0 BUN/Creatinine Ratio 18.3 Glucose 98 Calcium 8.4 Total Bilirubin 0.4 AST 97 H ALT 69 H Alkaline Phosphatase 54 Total Protein 6.6 Albumin 3.4 L Globulin 3.2 Albumin/Globulin Ratio 1.1 Exam Vital Signs (past 8 hours): - 11/10/21 04:00 11/10/21 05:22 11/10/21 08:22 Temperature 98.3 F Pulse Rate 81 98 H 93 H Respiratory Rate 19 18 24 Blood Pressure 121/85 143/74 H Pulse Oximetry 94 89 L 92 11/10/21 09:50 Temperature Pulse Rate 96 H Respiratory Rate 20 Blood Pressure Pulse Oximetry 90 L Fraction of Inspired Oxygen 0.67 Oxygen Delivery Method Heated High Flow Oxygen Flow Rate 50 Quality TeleICU VTE Deep Vein Thrombosis/Pulmonary Embolism Present on Admission: No Assessment & Plan Assessment & Plan narrative: [address] [address] Teleintensivist Progress Note Patient: Alyson Garibay MR#: [id number] : 1985 Acct:[id number] Age/Sex: 36 / F ? Date of Service: 11/08/21 Provider:?Kvng Haynes MD Subjective Subjective :: This patient was seen via real time interactive two-way audiovisual telecommunication. On HFNC 50/55%. Started on xanax for anxiety. No acute issues overnight. Current Medications Current Medications Medications: Home Medications diclofenac sodium 75 mg tablet,delayed release 75 mg PO BID 11/08/21 [History Confirmed 11/08/21] methocarbamol 750 mg tablet 750 mg PO Q6HR PRN 11/08/21 [History Confirmed 11/08/21] Visit Medications (administered) Generic Name Dose Route Start Last Admin ? Trade Name Freq? PRN Reason Stop Dose Admin Alprazolam ?0.25 mg ?11/08/21 23:59 ?11/09/21 07:02 ? Alprazolam 0.25 Mg Tablet ?PO ? ?0.25 mg ? ?Q6H PRN ? ?Administration ? ?Anxiety ? ? Dexamethasone ?6 mg ?11/09/21 09:00 ?11/09/21 08:31 ? Dexamethasone 10 Mg/Ml Vial ?IV ? ?6 mg ? ?DAILY CORWIN ? ?Administration Enoxaparin Sodium ?40 mg ?11/09/21 00:00 ?11/09/21 00:05 ? Enoxaparin 40 Mg/0.4 Ml Syringe ?SUBCUT ? ?40 mg ? ?Q12HR CORWIN ? ?Administration Furosemide ?20 mg ?11/09/21 09:00 ?11/09/21 08:31 ? Furosemide 20 Mg/2 Ml Vial ?IV ? ?20 mg ? ?DAILY CORWIN ? ?Administration Guaifenesin ?600 mg ?11/08/21 14:32 ?11/09/21 08:31 ? Guaifenesin Er 600 Mg Tab ?PO ? ?600 mg ? ?Q12HR PRN ? ?Administration ? ?Cough ? ? Remdesivir 100 mg/ Sodium ?250 mls @ 250 mls/hr ?11/09/21 09:00 ?11/09/21 08:31 ? Chloride ?IV ?11/17/21 09:59 ?250 mls/hr ? ?DAILY CORWIN ? ?Administration Objective Ventilator Parameters: Ventilator Settings FiO2? 50? Labs Result Diagrams: 11/09/21 04:30? 11/09/21 04:30? Labs: Laboratory Results - last 24 hr ? 11/08/21 11/08/21 11/09/21 ? 13:17 14:15 04:30 WBC ? ? ?4.0 L RBC ? ? ?4.29 Hgb ? ? ?12.4 Hct ? ? ?36.6 MCV ? ? ?85.2 MCH ? ? ?28.8 MCHC ? ? ?33.8 RDW ? ? ?14.2 Plt Count ? ? ?158 Neut % (Auto) ? ? ?56.9? D Lymph % (Auto) ? ? ?37.6? D [place] % (Auto) ? ? ?5.2 Eos % (Auto) ? ? ?0.1 L Baso % (Auto) ? ? ?0.2 Neut # (Auto) ? ? ?2300 Lymph # (Auto) ? ? ?1500 [place] # (Auto) ? ? ?200 Eos # (Auto) ? ? ?0 Baso # (Auto) ? ? ?0 Sodium ? ? ? Potassium ? ? ? Chloride ? ? ? Carbon Dioxide ? ? ? BUN ? ? ? Creatinine ? ? ? Estimated GFR ? ? ? BUN/Creatinine Ratio ? ? ? Glucose ? ? ? Calcium ? ? ? Magnesium ? ? ? Total Bilirubin ? ? ? AST ? ? ? ALT ? ? ? Alkaline Phosphatase ? ? ? Total Protein ? ? ? Albumin ? ? ? Globulin ? ? ? Albumin/Globulin Ratio ? ? ? TSH ? ? ? Nasal Screen MRSA (PCR) ? ?Negative for mrsa ? SARS-CoV-2 (PCR) ?Positive H ? ? ? 11/09/21 11/09/21 ? 04:30 04:30 WBC ? ? RBC ? ? Hgb ? ? Hct ? ? MCV ? ? MCH ? ? MCHC ? ? RDW ? ? Plt Count ? ? Neut % (Auto) ? ? Lymph % (Auto) ? ? [place] % (Auto) ? ? Eos % (Auto) ? ? Baso % (Auto) ? ? Neut # (Auto) ? ? Lymph # (Auto) ? ? [place] # (Auto) ? ? Eos # (Auto) ? ? Baso # (Auto) ? ? Sodium ?135 L ? Potassium ?3.6 ? Chloride ?100 ? Carbon Dioxide ?32 ? BUN ?11 ? Creatinine ?0.66 ? Estimated GFR ?> 60.0 ? BUN/Creatinine Ratio ?16.7 ? Glucose ?96 ? Calcium ?8.2 L ? Magnesium ?2.4 H ? Total Bilirubin ?0.4 ? AST ?71 H ? ALT ?43 H ? Alkaline Phosphatase ?55 ? Total Protein ?6.7 ? Albumin ?3.5 ? Globulin ?3.2 ? Albumin/Globulin Ratio ?1.1 ? TSH ? ?2.64 Nasal Screen MRSA (PCR) ? ? SARS-CoV-2 (PCR) ? ? Exam Vital Signs (past 8 hours): - ? 11/09/21 01:59 11/09/21 04:00 11/09/21 05:55 Temperature ? 99.2 F ? Pulse Rate 102 H 91 H 86 Respiratory Rate 18 20 20 Blood Pressure 146/88 H 132/86 ? Pulse Oximetry 94 94 93 ? 11/09/21 07:36 11/09/21 07:45 Temperature ? 98.7 F Pulse Rate 99 H 100 H Respiratory Rate 20 22 Blood Pressure 127/76 127/76 Pulse Oximetry 92 92 Fraction of Inspired Oxygen ? 55? Oxygen Delivery Method? Heated High Flow? Oxygen Flow Rate? 50? Narrative Exam Narrative: Anxious and speaking in full sentence. Quality TeleICU VTE Deep Vein Thrombosis/Pulmonary Embolism Present on Admission: No Assessment & Plan RESP: # Acute hypoxemia respiratory failure -- Secondary to COVID pneumonia -- COVID rx as below -- On xanax o for anxiety -- Cont gentle diuresis -- On HFNC 35/45% -- RT to titrate down FiO2 and flow to maintain goal SpO2 > 90% -- Cont self proning -- Encourage early ambulation as tolerated to prevent atelectasis ID: # COVID PNA -- Trend CRP, LDH, ferritin, and LFTs -- Risk factors -> morbid obesity -- Cont remdesivir, baricitinib and decadron -- Daily CMP and adjsut or Dc meds accordingly --Cont gentle diuresis to seek net negative fluid balance -- Venous duplex negative for DVT -- On lovenox 40 BID -- On strict contact, droplet/airborne, eye protection, and critical meticulous hand hygiene ENDO: -- Goal BS < 180 D/w RN and RT Time Spent With Patient Critical Care time: I spent a total of [50] minutes of critical care time on this patient's care today; this time is exclusive of procedural time. Time Spent With Patient Critical Care time: I spent a total of [] minutes of critical care time on this patient's care today; this time is exclusive of procedural time.
--- NOTE | 2021-11-10 14:48 | PM.PN.1 ---
Subjective Subjective Date Patient Seen: 11/10/21 Interval history: Patient is a 36-year-old female, unvaccinated, admitted to the hospital with acute hypoxic respiratory failure due to COVID pneumonia. Overall the patient reports she feels better. Her anxiety is well controlled with Xanax. She continues to have a cough with white productive sputum. She did have a significant nose bleed earlier. Exam Vital Signs (past 8 hours): - 11/10/21 08:00 11/10/21 08:22 11/10/21 09:50 Temperature 97.9 F Pulse Rate 98 H 93 H 96 H Respiratory Rate 26 H 24 20 Blood Pressure 143/74 H 143/74 H Pulse Oximetry 93 92 90 L 11/10/21 12:00 11/10/21 12:16 Temperature 98.2 F Pulse Rate 94 H 93 H Respiratory Rate 22 38 H Blood Pressure 120/74 Pulse Oximetry 95 95 Fraction of Inspired Oxygen 0.70 Oxygen Delivery Method Heated High Flow Oxygen Flow Rate 50 Narrative Exam Narrative: Pleasant female who appears comfortable lying in bed on high-flow oxygen Resp Other: Lungs clear to auscultation Cardio Other: Cardiac exam: Regular rate and rhythm normal S1-S2 GI Other: Abdomen: Soft and nontender Extrem Other: Extremities: No edema Objective Labs Result Diagrams: 11/10/21 04:35 11/10/21 04:35 Labs: Laboratory Results - last 24 hr 11/09/21 11/10/21 11/10/21 18:05 04:35 04:35 WBC 4.2 L RBC 4.39 Hgb 12.5 Hct 37.5 MCV 85.3 MCH 28.5 MCHC 33.4 RDW 13.9 Plt Count 188 Neut % (Auto) 59.6 Lymph % (Auto) 33.3 [place] % (Auto) 6.7 Eos % (Auto) 0.1 L Baso % (Auto) 0.3 Neut # (Auto) 2500 Lymph # (Auto) 1400 [place] # (Auto) 300 Eos # (Auto) 0 Baso # (Auto) 0 Sodium 136 L Potassium 3.9 3.4 Chloride 101 Carbon Dioxide 33 H BUN 11 Creatinine 0.60 Estimated GFR > 60.0 BUN/Creatinine Ratio 18.3 Glucose 98 Calcium 8.4 Total Bilirubin 0.4 AST 97 H ALT 69 H Alkaline Phosphatase 54 Total Protein 6.6 Albumin 3.4 L Globulin 3.2 Albumin/Gl[facility] 1.1 [facility] Family History (Updated 11/08/21 @ 12:53 by Damari Worthy MD) Mother Skin cancer Social History household members: spouse and family Smoking Status: Never smoker alcohol intake: current Assessment & Plan Assessment & Plan narrative: 36 y/o female unvaccinated COVID-19 + admitted for Acute Hypoxic Respiratory Failure -Patient is markedly hypoxic, now requiring high-flow oxygen -inflammatory markers elevated to include, LDH 824, Ferritin 124 -d-DIMER Normal, increased to 334 today, on BID dosing of lovenox -will continue dexamethasone, remdesivir-will add baricitnib -Lovenox for DVT prophylaxis -patient indicates she would want intubation/tracheostomy/if needed. Anxiety -ativan as needed, Ativan discontinued, now on Xanax schedule which appears to be controlling anxiety -she continues treatment for COVID pneumonia, acute hypoxic respiratory failure -goal today is to wean oxygen to maintain a saturation of greater than 90% -patient receiving Lasix which she is tolerating well -will continue to monitor lytes daily lab Morbid Obesity -dietary consult -continue DVT prophylaxis, with Lovenox 40 subQ b.i.d. -lower extremity Dopplers negative for DVT Time Spent With Patient Critical Care time: I spent a total of [] minutes of critical care time on this patient's care today; this time is exclusive of procedural time. Quality VTE Deep Vein Thrombosis/Pulmonary Embolism Present on Admission: No
[2021-11-10 17:02] LABS: Lactate Dehydrogenase 1548 U/L (313-618)
[2021-11-10 17:20] LABS: Procalcitonin 0.14 ng/mL (<0.5)
[2021-11-10 17:38] LABS: Ferritin 333 ng/mL (6-137)
--- NOTE | 2021-11-10 23:22 | PM.ICURNDS ---
- Date Patient Seen: 11/10/21 Time Patient Seen: 23:20 :: This patient was seen via real time interactive two-way audiovisual telecommunication. Note: Following up on this morbidly obese 36 y.o. female with COVID-19 acute hypoxic respiratory failure. Currently sleeping and saturating 89% on 50 L/min 62% FiO2. Despite the lack of improvement in te HFNC settings, RN reports that patient feels subjectively better. She did have some mild epistaxis; therefore, will hold enoxaprin VTE chemoprophylaxis for 24H and resume at 40 mg SUBQ q24H.
[2021-11-11] VITALS (22 sets, daily range): BP systolic 98–132; BP diastolic 43–72; PULSE 67–98; RESP 13–27; TEMP 31–37.1; O2SAT 88–96
--- NOTE | 2021-11-11 02:14 | PC.NURSE ---
0130 Pt turned to her left side and immediately desated to the upper 70s. She was proned and FIO2 increased to 100% briefly. RT paged and adjustments made to Heated high flow. Current settings are 60L/90% and O2 Sat = 93%. Positioned her back on her right side and waffle cushion provided to alleviate r hip pain. RR 18, HR 79. Low sat episode lasted 30 minutes. Will adjust HHF as needed.
--- NOTE | 2021-11-11 06:47 | P.TELICUIN_ITS ---
Teleintensivist Intervention Date/Time Was camera activated?: Yes Date Patient Seen: 11/11/21 Time Patient Seen: 06:48 Issue(s) Addressed Issue(s): Resp. Distress/Ventilator management Other:: Notified by RN for worsening hypoxemia and severe right hip pain. Per RN report, patient does not tolerate proning due to worsening hypoxemia which she is currently supine at this time. Received xanax which appears to be helping her anxiety. Currently on HFNC 60/90%. Intervention(s) Plan discussed with: Nurse (Will obtain stat CXR. Start tramadol 50 mg prn mode rate pain and norco 5/325 mg prn severe pain. Added lidocaine patch to right hip. If no improvement then will start BiPAP. D/w RN. )
--- NOTE | 2021-11-11 06:51 | DI.RAD.S_ITS ---
PROCEDURE: XR CHEST 1V INDICATIONS: picc placement TECHNIQUE: One view of the chest was acquired. COMPARISON: [facility], CR, XR CHEST 1V, 11/11/2021, 7:16. [facility], CR, XR CHEST 1V, 11/07/2021, 23:26. FINDINGS: Surgical changes and devices: Left-sided PICC line with the catheter tip projecting at the lower 3rd of the SVC. Lungs and pleura: Bilateral patchy airspace opacity. No pleural effusions or pneumothorax. Mediastinum: Mediastinal contours appear grossly stable. Heart size is enlarged. Bones and chest wall: No suspicious bony lesions. Overlying soft tissues appear unremarkable. IMPRESSION: Left-sided PICC with the catheter tip projecting at the lower 3rd of the SVC. Bilateral patchy airspace opacity. Dictated by: Salomón Ferrer M.D. on 11/11/2021 at 10:28 Approved by: Salomón Ferrer M.D. on 11/11/2021 at 10:29
--- NOTE | 2021-11-11 06:52 | DI.RAD.S_ITS ---
PROCEDURE: XR CHEST 1V INDICATIONS: respiratory distress TECHNIQUE: One view of the chest was acquired. COMPARISON: [facility], CR, XR CHEST 1V, 11/07/2021, 23:26. FINDINGS: Surgical changes and devices: None. Lungs and pleura: Interval progression of findings. Interval worsening of patchy bilateral interstitial and more confluent alveolar infiltrates. Consider severe viral pneumonia versus congestive heart failure. No pleural effusions or pneumothorax. Mediastinum: Mediastinal contours appear normal. Heart size is enlarged. Bones and chest wall: No suspicious bony lesions. Overlying soft tissues appear unremarkable. IMPRESSION: Interval worsening of pulmonary status. Consider worsening viral pneumonia versus worsening pulmonary edema. Dictated by: Nolan Gallagher M.D. on 11/11/2021 at 8:08 Approved by: Nolan Gallagher M.D. on 11/11/2021 at 8:10
[2021-11-11] MEDS: FUROSEMIDE 20 MG/2 ML VIAL IV (07:50)
[2021-11-11] MEDS: DEXAMETHASONE 10 MG/ML VIAL 6 MG IV (07:50)
[2021-11-11] MEDS: HYDROCODONE/ACET 5/325 TABLET 1 TAB PO ×2 (07:51→13:31)
[2021-11-11] MEDS: BARICITINIB 2 MG TABLET 4 MG PO (07:51)
[2021-11-11] MEDS: guaiFENesin ER 600 MG TAB PO (07:51)
[2021-11-11] MEDS: REMDESIVIR 100 MG in SODIUM CHLORIDE 0.9% 230 ML 250 ML IV (07:54)
[2021-11-11] MEDS: ALPRAZolam 0.25 MG TABLET PO ×3 (07:55→21:09)
--- NOTE | 2021-11-11 08:31 | PC.NURSE ---
Addendum entered by Naida Carey R.N. 11/11/21 18:21: 1820: PT switched to CPAP from heated high flow per RT. Pt saturations immediately increased to >92%, Pt tolerating change in therapy well and states she feels less SOB. Addendum entered by Naida Carey R.N. 11/11/21 17:41: 1730: Pt continues to have complaints of severe pain in R hip. Pt desaturates to 80s when in severe pain. Call placed to hospitalist, new orders received. Addendum entered by Naida Carey R.N. 11/11/21 15:57: 1555: Pt reports decreased SOB with activity, saturations have remained stable at 88-94% at 60L/85% heated high flow O2 therapy. Breath sounds remain diminished throughout all lobes bilaterally. Pt states she has adequate relief of hip pain with PO norco and lidocaine patch. Hansen remains patent and draining clear yellow urine. Bed locked and in low position, call light within reach. Addendum entered by Naida Carey R.N. 11/11/21 10:39: 0830: Hansen catheter placed per teleintensivist order to reduce exertion and obtain accurate output. Pt tolerated well, immediate return of 1300mL clear yellow urine noted Original Note: PT c/o 8/10 R hip pain, which she states is chronic and exacerbated by bedrest. Medicated with PRN norco and scheduled lidocaine patch, will monitor. Pt desaturates with any exertion, including simple position changes. Informed pt of upcoming PICC line insertion procedure and rationale, consent obtained. Pt requestd lab draw to be done after PICC insertion. Updated per pt request.
[2021-11-11] MEDS: LIDOCAINE PATCH 1 EACH ADH..PATCH TOP (09:00)
[2021-11-11 10:32] LABS: Add Manual Diff / Slide Review NO; Basophils Absolute Auto 0 /uL (0-100); Basophils Percent Auto 0.2 % (0-2); Eosinophils Absolute Auto 0 /uL (0-450); Eosinophils Percent Auto 0.1 % (2-4); Hematocrit 37.4 % (36-46); Hemoglobin 12.7 g/dL (12.0-16.0); Lymphocytes Absolute Auto 900 /uL (1100-4500); Lymphocytes Percent Auto 16.4 % (25-40); Mean Corpuscular Volume 85.3 fL (80-100); Monocytes Absolute Auto 200 /uL (0-900); Neutrophils Absolute Auto 4300 /uL (1500-7000); Neutrophils Percent Auto 79.3 % (50-75); Platelet Count 228 X10^3/uL (150-400); Red Blood Cell Count 4.39 X10^6/uL (4.0-5.2); Red Cell Distribution Width 13.8 % (11.6-14.8); White Blood Cell Count 5.4 X10^3/uL (4.5-11.0)
[2021-11-11 10:51] LABS: Alanine Aminotransferase 75 IU/L (<35); Albumin 3.5 g/dL (3.5-5.0); Albumin Globulin Ratio 1.1 (1.0-2.8); Alkaline Phosphatase 60 U/L (38-126); Aspartate Aminotransferase 70 IU/L (14-36); BUN Creatinine Ratio 24.2 (6-22); Bilirubin Total 0.4 mg/dL (0.2-1.3); Blood Urea Nitrogen 16 mg/dL (7-17); Calcium 8.6 mg/dL (8.4-10.2); Carbon Dioxide 31 mmol/L (22-32); Chloride 100 mmol/L (98-107); Estimated Glomerular Filt Rate > 60.0 mL/min (>60); Globulin 3.1 g/dL (1.7-4.1); Glucose 117 mg/dL (70-100); HEMOLYSIS < 15 (0-50); Potassium 3.7 mmol/L (3.4-5.1); Sodium 138 mmol/L (137-145); Total Protein 6.6 g/dL (6.3-8.2)
--- NOTE | 2021-11-11 11:06 | PM.PN.EICU ---
Subjective Subjective :: This patient was seen via real time interactive two-way audiovisual telecommunication. Rupa is doing much worse today, with worsnwing hypoxemia since this AM. XR reviewed, much worseas well. She is currently sob, with an oxumwetry of 85% on max high flow. Current Medications Current Medications Medications: Home Medications diclofenac sodium 75 mg tablet,delayed release 75 mg PO BID 11/08/21 [History Confirmed 11/08/21] methocarbamol 750 mg tablet 750 mg PO Q6HR PRN 11/08/21 [History Confirmed 11/08/21] Visit Medications (administered) Generic Name Dose Route Start Last Admin Trade Name Freq PRN Reason Stop Dose Admin Acetaminophen 650 mg 11/10/21 11:19 11/10/21 17:22 Acetaminophen 325 Mg Tablet PO 650 mg Q4HR PRN Administration Fever/Mild Pain (1-3) Hydrocodone Bitart/Acetaminophen 1 tab 11/11/21 07:26 11/11/21 07:51 Hydrocodone/Acet 5/325 Tablet PO 1 tab Q4HR PRN Administration Pain, Moderate (4-6) Alprazolam 0.25 mg 11/08/21 23:59 11/11/21 07:55 Alprazolam 0.25 Mg Tablet PO 0.25 mg Q6H PRN Administration Anxiety Dexamethasone 6 mg 11/09/21 09:00 11/11/21 07:50 Dexamethasone 10 Mg/Ml Vial IV 6 mg DAILY CORWIN Administration Furosemide 20 mg 11/09/21 09:00 11/11/21 07:50 Furosemide 20 Mg/2 Ml Vial IV 20 mg DAILY CORWIN Administration Guaifenesin 600 mg 11/08/21 14:32 11/11/21 07:51 Guaifenesin Er 600 Mg Tab PO 600 mg Q12HR PRN Administration Cough Remdesivir 100 mg/ Sodium 250 mls @ 250 mls/hr 11/09/21 09:00 11/11/21 07:54 Chloride IV 11/17/21 09:59 250 mls/hr DAILY CORWIN Administration Lorazepam 1 mg 11/09/21 18:10 11/09/21 20:05 Lorazepam 2 Mg/Ml Inj IV 1 mg Q6HR PRN Administration Anxiety Sodium Chloride 1 spray 11/09/21 10:40 11/09/21 11:09 Sodium Chloride Nasal [place] NASAL 1 spray PRN PRN Administration Congestion Objective Ventilator Parameters: Ventilator Settings FiO2 50 Labs Result Diagrams: 11/11/21 10:20 11/11/21 10:20 Labs: Laboratory Results - last 24 hr 11/10/21 11/11/21 11/11/21 04:35 10:20 10:20 WBC 5.4 RBC 4.39 Hgb 12.7 Hct 37.4 MCV 85.3 MCH 29.0 MCHC 34.0 RDW 13.8 Plt Count 228 Neut % (Auto) 79.3 H Lymph % (Auto) 16.4 L [place] % (Auto) 4.0 Eos % (Auto) 0.1 L Baso % (Auto) 0.2 Neut # (Auto) 4300 Lymph # (Auto) 900 L [place] # (Auto) 200 Eos # (Auto) 0 Baso # (Auto) 0 Sodium 138 Potassium 3.7 Chloride 100 Carbon Dioxide 31 BUN 16 Creatinine 0.66 Estimated GFR > 60.0 BUN/Creatinine Ratio 24.2 H Glucose 117 H Calcium 8.6 Ferritin 333 H Total Bilirubin 0.4 AST 70 H ALT 75 H Alkaline Phosphatase 60 Lactate Dehydrogenase 1548 H D Total Protein 6.6 Albumin 3.5 Globulin 3.1 Albumin/Globulin Ratio 1.1 Procalcitonin 0.14 Exam Vital Signs (past 8 hours): - 11/11/21 03:44 11/11/21 04:00 11/11/21 05:30 Temperature 98.7 F Pulse Rate 80 77 74 Respiratory Rate 27 H 16 20 Blood Pressure 101/64 102/64 102/64 Pulse Oximetry 94 96 92 11/11/21 06:34 11/11/21 07:30 11/11/21 08:00 Temperature 97.9 F Pulse Rate 85 98 H Respiratory Rate 19 Blood Pressure 102/64 110/70 Pulse Oximetry 92 90 L 94 11/11/21 09:24 Temperature Pulse Rate 97 H Respiratory Rate 18 Blood Pressure 110/70 Pulse Oximetry 94 Fraction of Inspired Oxygen 85 Oxygen Delivery Method Heated High Flow Oxygen Flow Rate 60 Narrative Exam Narrative: surrogate for exma is primary team Quality TeleICU VTE Deep Vein Thrombosis/Pulmonary Embolism Present on Admission: No Assessment & Plan Assessment & Plan narrative: RESP: # Acute hypoxemia respiratory failure -- Secondary to COVID pneumonia -- COVID rx as below -- On xanax o for anxiety -- Cont gentle diuresis -- On HFNC at 100% -- will start CPAP, and aswtich to HFNC as toelrated -- RT to titrate down FiO2 and flow to maintain goal SpO2 > 90% -- Cont self proning -- Encourage early ambulation as tolerated to prevent atelectasis ID: # COVID PNA -- Trend CRP, LDH, ferritin, and LFTs -- Risk factors -> morbid obesity -- Cont remdesivir, baricitinib and decadron -- Daily CMP and adjsut or Dc meds accordingly --Cont gentle diuresis to seek net negative fluid balance -- Venous duplex negative for DVT -- On lovenox 40 BID -- On strict contact, droplet/airborne, eye protection, and critical meticulous hand hygiene ENDO: -- Goal BS < 180 pending PICC line for access, will follow up labs folllwing placement D/w RN and RT cct 35 min Time Spent With Patient Critical Care time: I spent a total of [] minutes of critical care time on this patient's care today; this time is exclusive of procedural time.
[2021-11-11 11:57] LABS: HCO3 ABG 29 mmol/L (22-26); PCO2 ABG 40.8 mmHg (35-45); PO2 ABG 79 mmHg (80-100); TCO2 ABG 31 mmol/L (21-31)
[2021-11-11 11:58] LABS: Fractionated Inspired Oxygen 85; Oxygen Saturation ABG 96 % (95-100); pH ABG 7.47 (7.35-7.45)
--- NOTE | 2021-11-11 13:43 | DIET.CONS ---
Dietary Consultation Note Admission Date: 11/08/2021 09:56 Assessment: 36y F admitted with acute hypoxic respiratory failure due to covid PNA referred to nutrition for class 3 morbid obesity. Pt requiring maximum HHFNC and has worsened, now day 8 since dx. Pts POs inconsistent from 5% to 100%. Kitchen to send ONS Ensure Max bid to support high protein needs of this acutely ill patient. Ht: 175.26 cm Wt: 171 kg BMI: 55.6 Last BM: 11/11/21 (11/11/21 04:00) MNA: 14 Ramirez Score: 23 Diet: 11/08/21 Breakfast Regular [General (Regular) Diet] Diet Modifications: Ensure Max bid Safety Tray needed?: No Nutrition Percent Meal Consumed 50% 11/11/21 09:21 Percent Meal Consumed 100% 11/10/21 18:00 Percent Meal Consumed 50% 11/10/21 14:00 Percent Meal Consumed 10 11/10/21 09:22 Percent Meal Consumed 25% 11/09/21 20:00 Percent Meal Consumed 5% 11/09/21 14:00 Labs: RBC 4.39 X10^6/uL (4.0-5.2) 11/11/21 10:20 Hgb 12.7 g/dL (12.0-16.0) 11/11/21 10:20 Hct 37.4 % (36-46) 11/11/21 10:20 Creatinine 0.66 mg/dL (0.52-1.04) 11/11/21 10:20 Lactate 1.3 mmol/L (0.7-2.1) 11/07/21 23:25 Ferritin 333 ng/mL (6-137) H 11/10/21 04:35 Interventions: 1. ONS Ensure Max bid to provide 60g protein in bariatric friendly formula. Monitoring/Evaluations: POs, ONS tolerance Electronically Signed by: Yari Judd 11/11/21 13:43 Clinical Dietitian [address] [address]
--- NOTE | 2021-11-11 14:09 | PM.PN.1 ---
Subjective Subjective Date Patient Seen: 11/11/21 Time Patient Seen: 08:00 Interval history: Overnight she had hip pain. She was anxious. She was short of breath and desat. She had her HHFN increased to 60L, 85%. Today when seeing her she says she feels slightly better. Exam Vital Signs (past 8 hours): - 11/11/21 06:34 11/11/21 07:30 11/11/21 08:00 Temperature 97.9 F Pulse Rate 85 98 H Respiratory Rate 19 Blood Pressure 102/64 110/70 Pulse Oximetry 92 90 L 94 11/11/21 09:24 11/11/21 11:59 11/11/21 12:00 Temperature 97.9 F Pulse Rate 97 H 81 Respiratory Rate 18 26 H Blood Pressure 110/70 110/70 Pulse Oximetry 94 95 11/11/21 12:30 11/11/21 13:43 Temperature Pulse Rate 92 H Respiratory Rate 24 Blood Pressure 116/72 Pulse Oximetry 92 93 Fraction of Inspired Oxygen 0.85 Oxygen Delivery Method Heated High Flow Oxygen Flow Rate 60 Narrative Exam Narrative: GEN: no acute distress CV: regular rate and rhythm, no murmurs PULM: poor air movement bilaterally ABD: soft, nontender, nondistended, no organomegaly EXT: warm and well perfused with no edema Objective Labs Result Diagrams: 11/11/21 10:20 11/11/21 10:20 Labs: Laboratory Results - last 24 hr 11/10/21 11/11/21 11/11/21 04:35 10:20 10:20 WBC 5.4 RBC 4.39 Hgb 12.7 Hct 37.4 MCV 85.3 MCH 29.0 MCHC 34.0 RDW 13.8 Plt Count 228 Neut % (Auto) 79.3 H Lymph % (Auto) 16.4 L [place] % (Auto) 4.0 Eos % (Auto) 0.1 L Baso % (Auto) 0.2 Neut # (Auto) 4300 Lymph # (Auto) 900 L [place] # (Auto) 200 Eos # (Auto) 0 Baso # (Auto) 0 ABG pH ABG pCO2 ABG pO2 ABG HCO3 ABG Total CO2 ABG O2 Saturation ABG Base Excess FiO2 Sodium 138 Potassium 3.7 Chloride 100 Carbon Dioxide 31 BUN 16 Creatinine 0.66 Estimated GFR > 60.0 BUN/Creatinine Ratio 24.2 H Glucose 117 H Calcium 8.6 Ferritin 333 H Total Bilirubin 0.4 AST 70 H ALT 75 H Alkaline Phosphatase 60 Lactate Dehydrogenase 1548 H D Total Protein 6.6 Albumin 3.5 Globulin 3.1 Albumin/Globulin Ratio 1.1 Procalcitonin 0.14 11/11/21 11:43 WBC RBC Hgb Hct MCV MCH MCHC RDW Plt Count Neut % (Auto) Lymph % (Auto) [place] % (Auto) Eos % (Auto) Baso % (Auto) Neut # (Auto) Lymph # (Auto) [place] # (Auto) Eos # (Auto) Baso # (Auto) ABG pH 7.47 H ABG pCO2 40.8 ABG pO2 79 L ABG HCO3 29 H ABG Total CO2 31 ABG O2 Saturation 96 ABG Base Excess 6.0 H FiO2 85 Sodium Potassium Chloride Carbon Dioxide BUN Creatinine Estimated GFR BUN/Creatinine Ratio Glucose Calcium Ferritin Total Bilirubin AST ALT Alkaline Phosphatase Lactate Dehydrogenase Total Protein Albumin Globulin Albumin/Globulin Ratio Procalcitonin [facility] Medical History (Updated 11/11/21 @ 11:04 by Wilman Valdes MD) COVID-19 Family History (Updated 11/08/21 @ 12:53 by Damari Worthy MD) Mother Skin cancer Social History household members: spouse and family Smoking Status: Never smoker alcohol intake: current Assessment & Plan Assessment & Plan narrative: 36 y/o female unvaccinated COVID-19 + admitted for Acute Hypoxic Respiratory Failure 1. Acute hypoxemic respiratory failure, secondary to COVID -Patient is markedly hypoxic, now requiring high-flow oxygen -inflammatory markers elevated to include, LDH 824, Ferritin 124 -d-DIMER mildly elevated, on BID dosing of lovenox -will continue dexamethasone, remdesivir, baricitnib -Lovenox for DVT prophylaxis -patient indicates she would want intubation/tracheostomy/if needed. 2. Anxiety -ativan as needed, Ativan discontinued, now on Xanax schedule which appears to be controlling anxiety -she continues treatment for COVID pneumonia, acute hypoxic respiratory failure -goal today is to wean oxygen to maintain a saturation of greater than 90% -patient receiving Lasix which she is tolerating well -will continue to monitor lytes daily lab 3.Morbid Obesity -dietary consult -continue DVT prophylaxis, with Lovenox 40 subQ b.i.d. -lower extremity Dopplers negative for DVT Time Spent With Patient Critical Care time: I spent a total of [] minutes of critical care time on this patient's care today; this time is exclusive of procedural time. Quality VTE Deep Vein Thrombosis/Pulmonary Embolism Present on Admission: No
[2021-11-11] MEDS: TRAMADOL 50 MG TABLET PO (16:45)
[2021-11-11] MEDS: OXYCODONE IR 5 MG TABLET PO ×2 (18:11→23:53)
--- NOTE | 2021-11-11 20:50 | PM.ICURNDS ---
- :: This patient was seen via real time interactive two-way audiovisual telecommunication. Note: Completed ICU multidisciplinary night round. Patient was placed on CPAP 10 FiO2 85%. Patient is comfortable with SpO2 94%. Diuresed and negative 1.4 liters. Cont CPAP and gentle diuresis. Monitor closely for the need for endotracheal intubation. D/w RN at bedside.
[2021-11-11] MEDS: SODIUM CHLORIDE 0.9% FLUSH 10 ML IV (21:10)
[2021-11-11] MEDS: ACETAMINOPHEN 325 MG TABLET 650 MG PO (23:53)
[2021-11-12] VITALS (17 sets, daily range): BP systolic 85–143; BP diastolic 52–80; PULSE 63–89; RESP 16–26; TEMP 31–37.1; O2SAT 90–100
--- NOTE | 2021-11-12 | DI.RAD.S_ITS ---
PROCEDURE: XR CHEST 1V INDICATIONS: ET TUBE PLACEMENT, OG TUBE PLACEMENT TECHNIQUE: One view of the chest was acquired. COMPARISON: [facility], CR, XR CHEST 1V, 11/11/2021, 10:05. FINDINGS: Surgical changes and devices: Left upper extremity PICC is in place with the distal tip projecting over the mid to lower SVC. Endotracheal tube is present with the distal tip projecting approximately 5.2 cm above the sangeetha. Nasogastric tube extends below the level of the diaphragm with the distal tip excluded off the [id number]. Lungs and pleura: Persistent patchy ill-defined airspace opacities more pronounced on the left. No significant change in distribution or appearance. Possible small bilateral pleural effusions. No pneumothorax. Mediastinum: Cardiomediastinal contours appear stable Bones and chest wall: No suspicious bony lesions. Overlying soft tissues appear unremarkable. IMPRESSION: Support equipment as above. Stable cardiopulmonary evaluation with persistent patchy bilateral airspace opacities more pronounced on the left. Dictated by: Asim Rodriguez M.D. on 11/12/2021 at 10:13 Approved by: Asim Rodriguez M.D. on 11/12/2021 at 10:15
[2021-11-12] MEDS: LORazepam 2 MG/ML INJ 1 MG IV (02:23)
[2021-11-12] MEDS: HYDROCODONE/ACET 5/325 TABLET 1 TAB PO ×2 (02:23→08:14)
[2021-11-12 04:36] LABS: Hematocrit 38.3 % (36-46); Hemoglobin 12.8 g/dL (12.0-16.0); Mean Corpuscular HGB Conc 33.5 % (30-36); Mean Corpuscular Hemoglobin 28.6 PG (26-34); Mean Corpuscular Volume 85.4 fL (80-100); Platelet Count 259 X10^3/uL (150-400); Red Blood Cell Count 4.48 X10^6/uL (4.0-5.2); White Blood Cell Count 7.7 X10^3/uL (4.5-11.0)
[2021-11-12 04:42] LABS: BUN Creatinine Ratio 27.9 (6-22); Blood Urea Nitrogen 19 mg/dL (7-17); Calcium 8.6 mg/dL (8.4-10.2); Carbon Dioxide 35 mmol/L (22-32); Chloride 101 mmol/L (98-107); Estimated Glomerular Filt Rate > 60.0 mL/min (>60); Glucose 98 mg/dL (70-100); HEMOLYSIS < 15 (0-50); Potassium 3.5 mmol/L (3.4-5.1); Sodium 138 mmol/L (137-145)
[2021-11-12] MEDS: OXYCODONE IR 5 MG TABLET PO (05:43)
--- NOTE | 2021-11-12 06:10 | PC.NURSE ---
Shift note: Pt has tolerated cpap +12 throughout the night with 85%FIO2. Sats >92% Alert and cooperative with care. Medicated for pain and anxiety prn. Unable to tolerate removing mask except for small sips of water.
[2021-11-12] MEDS: REMDESIVIR 100 MG in SODIUM CHLORIDE 0.9% 230 ML 250 ML IV (08:14)
[2021-11-12] MEDS: guaiFENesin ER 600 MG TAB PO (08:15)
[2021-11-12] MEDS: BARICITINIB 2 MG TABLET 4 MG PO (08:15)
[2021-11-12] MEDS: DEXAMETHASONE 10 MG/ML VIAL 6 MG IV (08:15)
[2021-11-12] MEDS: ALPRAZolam 0.25 MG TABLET PO (08:15)
[2021-11-12] MEDS: FUROSEMIDE 20 MG/2 ML VIAL IV (08:16)
[2021-11-12] MEDS: SODIUM CHLORIDE 0.9% FLUSH 10 ML IV ×2 (08:17→23:12)
[2021-11-12] MEDS: fentaNYL 250 MCG/5 ML INJ (09:15)
[2021-11-12] MEDS: propofoL 1,000 MG/100 ML VIAL 41.04 MG IV (09:56)
[2021-11-12] MEDS: NOREPINEPHRINE BITARTRATE/D5W 4 MG/250 ML PLAST..BAG 37.5 MG IV (09:57)
[2021-11-12] MEDS: VECURONIUM 20 MG in SODIUM CHLORIDE 0.9% 100 ML 41.04 ML IV ×3 (09:57→18:23)
--- NOTE | 2021-11-12 10:10 | P.TELICUPN_ITS ---
Subjective Subjective :: This patient was seen via real time interactive two-way audiovisual telecommunication. Patient failed NIV, hypoxic despite current efforts,intaubed Current Medications Current Medications Medications: Home Medications diclofenac sodium 75 mg tablet,delayed release 75 mg PO BID 11/08/21 [History Confirmed 11/08/21] methocarbamol 750 mg tablet 750 mg PO Q6HR PRN 11/08/21 [History Confirmed 11/08/21] Visit Medications (administered) Generic Name Dose Route Start Last Admin Trade Name Freq PRN Reason Stop Dose Admin Acetaminophen 650 mg 11/10/21 11:19 11/11/21 23:53 Acetaminophen 325 Mg Tablet PO 650 mg Q4HR PRN Administration Fever/Mild Pain (1-3) Hydrocodone Bitart/Acetaminophen 1 tab 11/11/21 07:26 11/12/21 08:14 Hydrocodone/Acet 5/325 Tablet PO 1 tab Q4HR PRN Administration Pain, Moderate (4-6) Alprazolam 0.25 mg 11/08/21 23:59 11/12/21 08:15 Alprazolam 0.25 Mg Tablet PO 0.25 mg Q6H PRN Administration Anxiety Dexamethasone 6 mg 11/09/21 09:00 11/12/21 08:15 Dexamethasone 10 Mg/Ml Vial IV 6 mg DAILY CORWIN Administration Furosemide 20 mg 11/09/21 09:00 11/12/21 08:16 Furosemide 20 Mg/2 Ml Vial IV 20 mg DAILY CORWIN Administration Guaifenesin 600 mg 11/08/21 14:32 11/12/21 08:15 Guaifenesin Er 600 Mg Tab PO 600 mg Q12HR PRN Administration Cough Remdesivir 100 mg/ Sodium 250 mls @ 250 mls/hr 11/09/21 09:00 11/12/21 10:03 Chloride IV 11/17/21 09:59 Infused DAILY CORWIN Infusion Propofol 1,000 mg in 100 mls @ 5.13 mls/hr 11/12/21 09:15 11/12/21 09:56 Propofol IV 40 mcg/kg/min TITRATE CORWIN 41.04 mls/hr Administration Protocol 5 MCG/KG/MIN NOREPINEPHRINE BITARTRATE/D5W 4 mg in 250 mls @ 30 mls/hr 11/12/21 09:04 11/12/21 09:57 Levophed IV 10 mcg/min TITRATE CORWIN 37.5 mls/hr Administration Protocol 8 MCG/MIN Vecuronium [place] 20 mg/ 100 mls @ 41.04 mls/hr 11/12/21 09:15 11/12/21 09:57 Sodium Chloride IV 0.8 mcg/kg/min TITRATE CORWIN 41.04 mls/hr Administration Protocol 0.8 MCG/KG/MIN Lidocaine 1 each 11/11/21 09:00 11/12/21 08:16 Lidocaine Patch 1 Each Adh..Patch TOP 1 each DAILY CORWIN Administration Lidocaine 1 each 11/11/21 21:00 11/11/21 20:39 Remove Lidocaine Patch TOP 1 each BEDTIME CORWIN Administration Lorazepam 1 mg 11/09/21 18:10 11/12/21 02:23 Lorazepam 2 Mg/Ml Inj IV 1 mg Q6HR PRN Administration Anxiety Oxycodone HCl 5 mg 11/11/21 18:03 11/12/21 05:43 Oxycodone Ir 5 Mg Tablet PO 5 mg Q6HR PRN Administration Pain, Moderate (4-6) Sodium Chloride 1 spray 11/09/21 10:40 11/09/21 11:09 Sodium Chloride Nasal [place] NASAL 1 spray PRN PRN Administration Congestion Sodium Chloride 10 ml 11/11/21 21:00 11/12/21 08:17 Sodium Chloride 0.9% Flush IV 10 ml BID CORWIN Administration Tramadol HCl 50 mg 11/11/21 06:49 11/11/21 16:45 Tramadol 50 Mg Tablet PO 50 mg Q6H PRN Administration Pain, Moderate (4-6) Objective Ventilator Parameters: Ventilator Settings FiO2 50 Labs Result Diagrams: 11/12/21 04:30 11/12/21 04:30 Labs: Laboratory Results - last 24 hr 11/11/21 11/11/21 11/11/21 10:20 10:20 11:43 WBC 5.4 RBC 4.39 Hgb 12.7 Hct 37.4 MCV 85.3 MCH 29.0 MCHC 34.0 RDW 13.8 Plt Count 228 Neut % (Auto) 79.3 H Lymph % (Auto) 16.4 L [place] % (Auto) 4.0 Eos % (Auto) 0.1 L Baso % (Auto) 0.2 Neut # (Auto) 4300 Lymph # (Auto) 900 L [place] # (Auto) 200 Eos # (Auto) 0 Baso # (Auto) 0 ABG pH 7.47 H ABG pCO2 40.8 ABG pO2 79 L ABG HCO3 29 H ABG Total CO2 31 ABG O2 Saturation 96 ABG Base Excess 6.0 H FiO2 85 Sodium 138 Potassium 3.7 Chloride 100 Carbon Dioxide 31 BUN 16 Creatinine 0.66 Estimated GFR > 60.0 BUN/Creatinine Ratio 24.2 H Glucose 117 H Calcium 8.6 Total Bilirubin 0.4 AST 70 H ALT 75 H Alkaline Phosphatase 60 Total Protein 6.6 Albumin 3.5 Globulin 3.1 Albumin/Globulin Ratio 1.1 11/12/21 11/12/21 04:30 04:30 WBC 7.7 RBC 4.48 Hgb 12.8 Hct 38.3 MCV 85.4 MCH 28.6 MCHC 33.5 RDW 14.0 Plt Count 259 Neut % (Auto) Lymph % (Auto) [place] % (Auto) Eos % (Auto) Baso % (Auto) Neut # (Auto) Lymph # (Auto) [place] # (Auto) Eos # (Auto) Baso # (Auto) ABG pH ABG pCO2 ABG pO2 ABG HCO3 ABG Total CO2 ABG O2 Saturation ABG Base Excess FiO2 Sodium 138 Potassium 3.5 Chloride 101 Carbon Dioxide 35 H BUN 19 H Creatinine 0.68 Estimated GFR > 60.0 BUN/Creatinine Ratio 27.9 H Glucose 98 Calcium 8.6 Total Bilirubin AST ALT Alkaline Phosphatase Total Protein Albumin Globulin Albumin/Globulin Ratio Exam Vital Signs (past 8 hours): - 11/12/21 03:32 11/12/21 04:00 11/12/21 05:23 Temperature 97.0 F L Pulse Rate 77 Respiratory Rate 16 Blood Pressure 110/65 113/74 113/74 Pulse Oximetry 94 Fraction of Inspired Oxygen 85 Oxygen Delivery Method Heated High Flow Oxygen Flow Rate 60 Quality TeleICU VTE Deep Vein Thrombosis/Pulmonary Embolism Present on Admission: No Assessment & Plan Assessment & Plan narrative: Assessment & Plan narrative: RESP: # Acute hypoxemia respiratory failure -- Secondary to COVID pneumonia -- Intubated today -- VC 26/400/15/100%, DP 15, pending ABG -- Sedation Propfol and fentany + Nimbex -- On xanax o for anxiety -- Cont gentle diuresis -- Decision to proning after ABG CVS Sedation induced hypotension, on levo at 5 mcg/min Wean off levo as tolerated for MAP goal of 65 ID: # COVID PNA -- Trend CRP, LDH, ferritin, and LFTs -- Risk factors -> morbid obesity -- Cont remdesivir, baricitinib and decadron -- Mildly elevated LFT, check today. Stop Tyelenol, Daily CMP and adjsut or Dc meds accordingly --Cont gentle diuresis to seek net negative fluid balance -- Venous duplex negative for DVT -- On lovenox 40 BID -- On strict contact, droplet/airborne, eye protection, and critical meticulous hand hygiene ENDO: -- Goal BS < 180 GI OGT, strat trickle tube feed and slowly increase as tolerated as long as pressor dose is low D/w RN and RT cct 60 min Time Spent With Patient Critical Care time: I spent a total of [] minutes of critical care time on this patient's care today; this time is exclusive of procedural time.
[2021-11-12] MEDS: fentaNYL 1,000 MCG in DEXTROSE 5% IN WATER 230 ML 29.925 ML IV (10:24)
--- NOTE | 2021-11-12 10:54 | PM.PROC.1 ---
Procedures Date/Time Date of procedure: 11/12/21 Time of procedure: 10:20 Arterial Line Time out performed: Yes Size (Gauge): 20 Technique used: guide wire technique Post-Procedure: dry sterile dressing placed Patient tolerated procedure: Well Complications: none Site: right and radial Additional comments: Gave 15mg ephedrine prior to procedure for arterial palpation. Single pass with blood return, threaded easily, pulsatile waveform.
--- NOTE | 2021-11-12 11:14 | PM.PROC.1 ---
Procedures Date/Time Date of procedure: 11/12/21 Time of procedure: 09:30 Arterial Line Size (Gauge): 20 Intubation Time out performed: Yes Laryngoscope: fiber optic video scope ET tube size: 7.5 ET tube uncuffed: No Tube secured depth (cm): 21 Tube secured location: teeth Tube placement confirmation: visualized tube passing through cords, equal breath sounds bilaterally, no breath sounds over epigastrium and confirmation by capnometry Patient tolerated procedure: well Intubation complications: none Additional comments: Routine Induction, easy mask with RT assist, DL x 1 glidescope 3, grade 1, 7.5 through cords with direct visualization, 21cm at teeth. Fentanyl 250mcg, propofol 150mg, succinylcholine 140mg. Phenylephrine 100mcg post intubation x 1. Norepinephrine gtt started per hospitalist, propofol sedation and muscle relaxation per ICU/hospitalist post intubation.
[2021-11-12 11:44] LABS: HCO3 ABG 29 mmol/L (22-26); PCO2 ABG 40.5 mmHg (35-45); PO2 ABG 128 mmHg (80-100); TCO2 ABG 30 mmol/L (21-31); pH ABG 7.47 (7.35-7.45)
[2021-11-12 11:45] LABS: Fractionated Inspired Oxygen 100; Oxygen Saturation ABG 99 % (95-100)
[2021-11-12] MEDS: propofoL 1,000 MG/100 ML VIAL 35.91 MG IV ×3 (14:25→21:09)
[2021-11-12] MEDS: CHLORHEXIDINE GLUCONATE 15 ML CUP PO ×2 (14:27→18:25)
--- NOTE | 2021-11-12 14:40 | DIET.CONS ---
Addendum entered by Yari Judd 11/12/21 15:34: protein modular packets to be sent up on dietary carts bid- 4 with breakfast and 3 with dinner daily. Original Note: Dietary Consultation Note Admission Date: 11/08/2021 09:56 RD Note: 36y F covid+ intubated this morning secondary to frequent severe nosebleeds limiting effectiveness of lower intervention breathing support consulting nutrition for TF reccs. Pt BMI 55.7 with class 3 obesity with fairly good POs through last evening (POs 50-100%). Pt OG/NG feeding tube imaged and in proper position. Care to provide adequate protein without overfeeding patient. Reccs determined based on [facility] standard of care for obese patients in ICU. Pt on 35mcg/kg/min propofol providing 948kcals. TF rate and protein modulars will need to be adjusted if this rate changes. actual weight: 171kg (158% above IBW) adjusted body weight: 92.4kg ideal body weight: 66.2kg Ht: 175.26 cm Wt: 171 kg BMI: 55.6 Last BM: 11/11/21 (11/11/21 04:00) MNA: 14 Ramirez Score: 19 Diet: 11/12/21 10:39 NPO Diet Diet Modifications: NPO Type: Strict Nutrition Percent Meal Consumed 75% 11/11/21 13:45 Percent Meal Consumed 50% 11/11/21 09:21 Percent Meal Consumed 100% 11/10/21 18:00 Labs: RBC 4.48 X10^6/uL (4.0-5.2) 11/12/21 04:30 Hgb 12.8 g/dL (12.0-16.0) 11/12/21 04:30 Hct 38.3 % (36-46) 11/12/21 04:30 Creatinine 0.68 mg/dL (0.52-1.04) 11/12/21 04:30 Lactate 1.3 mmol/L (0.7-2.1) 11/07/21 23:25 Ferritin 333 ng/mL (6-137) H 11/10/21 04:35 Nutrition Diagnosis: inability to tolerate oral intake r/t NPO on vent status. Interventions: 1. Recc continuous enteral feeding through NG/OG starting at 15mL/h increasing to goal rate of 25mL/h with 7 additional protein packets daily (11g PRO each- [employer]source TF) as tolerated. 2. Recc 350mL free water flushes q4h or as directed by armoured car escort. Enteral feeding plus water flushes plus propofol provide: 2156 kcals 133g PRO 103g CHO 136g fat 2555 mL fluids 3. HOB elevated >30 degrees at all time to reduce chance of aspiration. EER: 4727-2172 kcals (11-14kcal/kg actual body weight), 132g PRO (2g/kg ideal body weight), 2760mL free water (30mL/kg adjusted body weight) Monitoring/Evaluations: following daily for TF tolerance, sedation changes Electronically Signed by: Yari Judd 11/12/21 14:40 Clinical Dietitian [address] [address]
--- NOTE | 2021-11-12 15:02 | P.PN_ITS ---
Subjective Subjective Date Patient Seen: 11/12/21 Time Patient Seen: 08:00 Interval history: Overnight she had multiple episodes of epistaxis. This morning she was c ontinuously hypoxemic. She had been on CPAP overnight. She was also trialed this AM on nonrebreather and heated high flow. Her oxygenation remained in the 80s. Decision was made to intubate her. Exam Vital Signs (past 8 hours): - 11/12/21 07:45 11/12/21 08:00 11/12/21 12:00 Temperature 98.7 F 98.8 F Pulse Rate 75 74 77 Respiratory Rate 20 19 26 H Blood Pressure 114/72 143/80 H Pulse Oximetry 90 L 93 100 Fraction of Inspired Oxygen 65 Oxygen Delivery Method Mechanical Ventilation Oxygen Flow Rate 60 Narrative Exam Narrative: GEN: intubated CV: regular rate and rhythm, no murmurs PULM: poor air movement bilaterally, coarse breath sounds ABD: soft, nontender, nondistended, no organomegaly EXT: warm and well perfused with no edema NEURO: coughing, uncomfortable on the vent Objective Labs Result Diagrams: 11/12/21 04:30 11/12/21 04:30 Labs: Laboratory Results - last 24 hr 11/12/21 11/12/21 11/12/21 04:30 04:30 10:50 WBC 7.7 RBC 4.48 Hgb 12.8 Hct 38.3 MCV 85.4 MCH 28.6 MCHC 33.5 RDW 14.0 Plt Count 259 ABG pH 7.47 H ABG pCO2 40.5 ABG pO2 128 H ABG HCO3 29 H ABG Total CO2 30 ABG O2 Saturation 99 ABG Base Excess 5.0 H FiO2 100 Sodium 138 Potassium 3.5 Chloride 101 Carbon Dioxide 35 H BUN 19 H Creatinine 0.68 Estimated GFR > 60.0 BUN/Creatinine Ratio 27.9 H Glucose 98 Calcium 8.6 11/12/21 13:27 WBC RBC Hgb Hct MCV MCH MCHC RDW Plt Count ABG pH 7.35 ABG pCO2 70.6 H* ABG pO2 74 L ABG HCO3 39 H ABG Total CO2 41 H ABG O2 Saturation 93 L ABG Base Excess 13.0 H FiO2 32 Sodium Potassium Chloride Carbon Dioxide BUN Creatinine Estimated GFR BUN/Creatinine Ratio Glucose Calcium [facility] Medical History (Updated 11/11/21 @ 11:04 by Wilman Valdes MD) COVID-19 Family History (Updated 11/08/21 @ 12:53 by Damari Worthy MD) Mother Skin cancer Social History household members: spouse and family Smoking Status: Never smoker alcohol intake: current Assessment & Plan Assessment & Plan narrative: 36 y/o female unvaccinated COVID-19 + admitted for Acute Hypoxic Respiratory Failure 1. Acute hypoxemic respiratory failure, secondary to COVID -Patient is markedly hypoxic, now intubated on 11/11 -inflammatory markers elevated to include, LDH 824, Ferritin 124 -d-DIMER mildly elevated, on BID dosing of lovenox -will continue dexamethasone, remdesivir, baricitnib -Lovenox for DVT prophylaxis -patient indicates she would want intubation/tracheostomy/if needed. -intubated on 11/11, needed propofol, fentanyl, and vecuronium for paralysis and sedation in order to oxygenate patient well -appreciate commercial teller for management of respiratory failure -was briefly on levophed for desaturation -sputum culture for further evaluation of infection 2. Anxiety -she continues treatment for COVID pneumonia, acute hypoxic respiratory failure -patient receiving Lasix which she is tolerating well -will continue to monitor lytes daily lab 3.Morbid Obesity -dietary consult -continue DVT prophylaxis, with Lovenox 40 subQ b.i.d. -lower extremity Dopplers negative for DVT Time Spent With Patient Critical Care time: I spent a total of [] minutes of critical care time on this patient's care today; this time is exclusive of procedural time. Quality VTE Deep Vein Thrombosis/Pulmonary Embolism Present on Admission: No
[2021-11-12] MEDS: POTASSIUM CHLORIDE IN WATER 10 MEQ/100 ML PIGGYBACK 100 MEQ IV ×2 (15:40→17:49)
--- NOTE | 2021-11-12 16:27 | CM.DANOTE ---
DCP/continued: Patient symptoms worsening and she required intubation today. CM team to continue to follow for d/c planning needs and/or emotional support. P: Pending SHEMAR
[2021-11-12 16:32] LABS: Alanine Aminotransferase 51 IU/L (<35); Albumin 2.8 g/dL (3.5-5.0); Alkaline Phosphatase 43 U/L (38-126); Aspartate Aminotransferase 35 IU/L (14-36); BUN Creatinine Ratio 30.8 (6-22); Bilirubin Total 0.3 mg/dL (0.2-1.3); Blood Urea Nitrogen 16 mg/dL (7-17); Calcium 6.9 mg/dL (8.4-10.2); Carbon Dioxide 27 mmol/L (22-32); Chloride 106 mmol/L (98-107); Estimated Glomerular Filt Rate > 60.0 mL/min (>60); Globulin 2.8 g/dL (1.7-4.1); Glucose 138 mg/dL (70-100); HEMOLYSIS < 15 (0-50); Sodium 147 mmol/L (137-145); Total Protein 5.6 g/dL (6.3-8.2)
--- NOTE | 2021-11-12 19:43 | PC.NURSE ---
PT INTUBATED THIS AM 09- VENT SETTINGS AT PRESENT ARE 50% FIO2 15 PEEP 26 RESP RATE AND TV OF 400, BILAT WRIST RESTRAINTS IN PLACE - PLAZA PATENT AND ADEQUATE UOP, INITIATED TUBE FEEDINGS PER DIETARY RECOMMENDATION- ART LINE IN PLACE AND GOOD BLOOD RETURN- SCD'S IN PLACE - UPDATES TO FAMILY- USING VECURONIUM FOR PARALYSIS AND 2/4 TRAIN OF 4( ON 7)
[2021-11-12] MEDS: MIDAZOLAM 50 MG in DEXTROSE 5% IN WATER 240 ML 25 ML IV (21:12)
--- NOTE | 2021-11-12 21:24 | PM.ICURNDS ---
- Date Patient Seen: 11/12/21 Time Patient Seen: 20:55 :: This patient was seen via real time interactive two-way audiovisual telecommunication. Note: Patient was intubated early today; vent settings reviewed and she is on 6 mL/kg IBW with PEEP of 15; ABG reviewed and acceptable. During rounds, she was on propofol 35 mcg/kg/min and fentanyl 0.5 mcg/kg/hr as well as vecuronium; RN reports that patient took a while to become synchronous with ventilator and that she was ultimately paralyzed. Existing analgosedation orders to to titrate to RASS of -4. INTERVENTIONS 1) Ordered sputum 2) Initiated SUP 3) Added midazolam infusion; will attempt to discontinue neuromuscular blockade once this has been infusing for several hours 4) HyperNa+ noted; added free water 250 mL q6H via FT
[2021-11-12] MEDS: propofoL 1,000 MG/100 ML VIAL 46.17 MG IV (22:39)
[2021-11-12] MEDS: fentaNYL 1,000 MCG in DEXTROSE 5% IN WATER 230 ML 21.375 ML IV (23:11)
[2021-11-13] VITALS (20 sets, daily range): BP systolic 89–164; BP diastolic 46–86; PULSE 69–104; RESP 22–28; TEMP 36.9–37.9; O2SAT 89–99
[2021-11-13] MEDS: CHLORHEXIDINE GLUCONATE 15 ML CUP PO ×3 (00:39→12:12)
[2021-11-13] MEDS: propofoL 1,000 MG/100 ML VIAL 46.17 MG IV (00:40)
[2021-11-13] MEDS: propofoL 1,000 MG/100 ML VIAL 35.91 MG IV (03:27)
[2021-11-13 05:13] LABS: Alanine Aminotransferase 51 IU/L (<35); Albumin 3.2 g/dL (3.5-5.0); Albumin Globulin Ratio 1.1 (1.0-2.8); Alkaline Phosphatase 46 U/L (38-126); Aspartate Aminotransferase 32 IU/L (14-36); BUN Creatinine Ratio 34.9 (6-22); Bilirubin Total 0.3 mg/dL (0.2-1.3); Blood Urea Nitrogen 22 mg/dL (7-17); Calcium 8.2 mg/dL (8.4-10.2); Carbon Dioxide 29 mmol/L (22-32); Chloride 101 mmol/L (98-107); Estimated Glomerular Filt Rate > 60.0 mL/min (>60); Globulin 2.9 g/dL (1.7-4.1); Glucose 100 mg/dL (70-100); HEMOLYSIS 17 (0-50); Sodium 134 mmol/L (137-145); Total Protein 6.1 g/dL (6.3-8.2)
[2021-11-13] MEDS: propofoL 1,000 MG/100 ML VIAL 41.04 MG IV ×3 (05:47→15:34)
--- NOTE | 2021-11-13 06:00 | PC.NURSE ---
Shift note: Patient remained intubated, on ventilator at 50% FIO2, maintaining oxygen saturation >90% with episodes of desaturation when turned and suctioned, sedated with propofol, fentanyl and versed, titrating to maintain RASS -1/ -2. Afebrile, normotensive, sinus rhythm in the monitor. PICC line and A-line are intact and functional. Tube feeding tolerated with minimal residual. Hansen cath intact and draining with adequate urine output. No bowel movement noted. Will continue to monitor.
--- NOTE | 2021-11-13 06:34 | PC.NURSE ---
Shift Note-At start of shift, patient was very agitated and confused, CIWA = 11, 2mg IV Ativan given per protocol-effective, he dozed restlessly, but was not agitated, IV Dilaudid also given per prn for FLACC 5-6/10. Thiamine IV and Meropenem prn schedule. 2-3+ edema to BLEs, elevated, open areas and blisters continue to weep on chux pads, warm with cap refill >2. SR, afebrile via core temp. Remains on HHF 40L/25%, SpO2 mostly >95%, does have significant apnea, occasionally > 10 seconds.
[2021-11-13] MEDS: POTASSIUM CHLORIDE IN WATER 10 MEQ/100 ML PIGGYBACK 100 MEQ IV ×4 (07:08→11:09)
[2021-11-13] MEDS: FUROSEMIDE 20 MG/2 ML VIAL IV (08:07)
[2021-11-13] MEDS: BARICITINIB 2 MG TABLET 4 MG PO (08:07)
[2021-11-13] MEDS: REMDESIVIR 100 MG in SODIUM CHLORIDE 0.9% 230 ML 250 ML IV (08:07)
[2021-11-13] MEDS: DEXAMETHASONE 10 MG/ML VIAL 6 MG IV (08:07)
[2021-11-13] MEDS: PANTOPRAZOLE 40 MG VIAL IV (08:08)
[2021-11-13] MEDS: SODIUM CHLORIDE 0.9% FLUSH 10 ML IV (08:08)
[2021-11-13] MEDS: propofoL 1,000 MG/100 ML VIAL 51.3 MG IV ×3 (08:20→12:12)
--- NOTE | 2021-11-13 10:04 | DI.RAD.S_ITS ---
PROCEDURE: XR CHEST 1V INDICATIONS: intubated, ards, covid pneumonia TECHNIQUE: One view of the chest was acquired. COMPARISON: [facility], CR, XR CHEST 1V, 11/12/2021, 9:48. FINDINGS: Surgical changes and devices: Endotracheal tube, nasogastric tube and left PICC line are unchanged. Lungs and pleura: There is an unchanged appearance patchy bilateral pulmonary opacities. Mediastinum: Mediastinal contours appear normal. Heart size is normal. Bones and chest wall: No suspicious bony lesions. Overlying soft tissues appear unremarkable. IMPRESSION: Patchy bilateral pulmonary opacities unchanged and most consistent with pneumonia. Dictated by: Eleanor Cruz M.D. on 11/13/2021 at 11:25 Approved by: Eleanor Cruz M.D. on 11/13/2021 at 11:25
[2021-11-13] MEDS: fentaNYL 1,000 MCG in DEXTROSE 5% IN WATER 230 ML 42.75 ML IV ×2 (10:24→15:35)
[2021-11-13 10:25] LABS: Fractionated Inspired Oxygen 60; HCO3 ABG 26 mmol/L (22-26); Oxygen Saturation ABG 93 % (95-100); PCO2 ABG 34.9 mmHg (35-45); PO2 ABG 61 mmHg (80-100); TCO2 ABG 27 mmol/L (21-31); pH ABG 7.49 (7.35-7.45)
[2021-11-13] MEDS: POTASSIUM CHLORIDE 20 MEQ/15 ML UDC 60 MEQ PO (10:31)
[2021-11-13 11:32] LABS: Fractionated Inspired Oxygen 50; HCO3 ABG 27 mmol/L (22-26); Oxygen Saturation ABG 89 % (95-100); PCO2 ABG 36.6 mmHg (35-45); PO2 ABG 53 mmHg (80-100); TCO2 ABG 28 mmol/L (21-31); pH ABG 7.48 (7.35-7.45)
--- NOTE | 2021-11-13 12:09 | PM.PN.EICU ---
Subjective Subjective :: This patient was seen via real time interactive two-way audiovisual telecommunication. Current Medications Current Medications Medications: Home Medications diclofenac sodium 75 mg tablet,delayed release 75 mg PO BID 11/08/21 [History Confirmed 11/08/21] methocarbamol 750 mg tablet 750 mg PO Q6HR PRN 11/08/21 [History Confirmed 11/08/21] Visit Medications (administered) Generic Name Dose Route Start Last Admin Trade Name Freq PRN Reason Stop Dose Admin Chlorhexidine Gluconate 15 ml 11/12/21 12:00 11/13/21 05:47 Chlorhexidine Gluconate 15 Ml Cup PO 15 ml Q6HR CORWIN Administration Dexamethasone 6 mg 11/09/21 09:00 11/13/21 08:07 Dexamethasone 10 Mg/Ml Vial IV 6 mg DAILY CORWIN Administration Remdesivir 100 mg/ Sodium 250 mls @ 250 mls/hr 11/09/21 09:00 11/13/21 08:07 Chloride IV 11/17/21 09:59 250 mls/hr DAILY CORWIN Administration Propofol 1,000 mg in 100 mls @ 5.13 mls/hr 11/12/21 09:15 11/13/21 09:58 Propofol IV 50 mcg/kg/min TITRATE CORWIN 51.3 mls/hr Administration Protocol 5 MCG/KG/MIN Fentanyl 1,000 mcg/ Dextrose 250 mls @ 29.925 mls/hr 11/12/21 09:15 11/13/21 10:24 IV 1 mcg/kg/hr TITRATE CORWIN 42.75 mls/hr Administration Protocol 0.7 MCG/KG/HR NOREPINEPHRINE BITARTRATE/D5W 4 mg in 250 mls @ 30 mls/hr 11/12/21 09:04 11/12/21 18:25 Levophed IV 0 mcg/min TITRATE CORWIN 0 mls/hr Titration Protocol 8 MCG/MIN Vecuronium [place] 20 mg/ 100 mls @ 41.04 mls/hr 11/12/21 09:15 11/12/21 21:10 Sodium Chloride IV Infused TITRATE CORWIN Titration Protocol 0.8 MCG/KG/MIN Midazolam HCl 50 mg/ Dextrose 250 mls @ 25 mls/hr 11/12/21 20:45 11/13/21 09:00 IV 2 mg/hr TITRATE CORWIN 10 mls/hr Infusion Protocol 5 MG/HR Lidocaine 1 each 11/11/21 09:00 11/13/21 08:38 Lidocaine Patch 1 Each Adh..Patch TOP Not Given DAILY CORWIN Lidocaine 1 each 11/11/21 21:00 11/12/21 22:56 Remove Lidocaine Patch TOP Not Given BEDTIME CORWIN Non-Formulary Medication 250 ml 11/13/21 00:00 11/13/21 06:25 Free Water Flushes TUBE Not Given Q6HR CORWIN Pantoprazole Sodium 40 mg 11/13/21 09:00 11/13/21 08:08 Pantoprazole 40 Mg Vial IV 40 mg DAILY CORWIN Administration Sodium Chloride 1 spray 11/09/21 10:40 11/09/21 11:09 Sodium Chloride Nasal [place] NASAL 1 spray PRN PRN Administration Congestion Sodium Chloride 10 ml 11/11/21 21:00 11/13/21 08:08 Sodium Chloride 0.9% Flush IV 10 ml BID CORWIN Administration Objective Ventilator Parameters: Ventilator Settings FiO2 50 RT Vent Frequency 22 Ventilator Tidal Volume 400 Exhaled Positive End Expiratory 13 Pressure Inspiratory Phase Time 0.9 I:E Ratio 1:2.1 Patient Position HOB >= 30 degrees Labs Result Diagrams: 11/12/21 04:30 11/13/21 04:30 Labs: Laboratory Results - last 24 hr 11/12/21 11/12/21 11/13/21 13:27 16:10 04:30 ABG pH Cancelled ABG pCO2 Cancelled ABG pO2 Cancelled ABG HCO3 Cancelled ABG Total CO2 Cancelled ABG O2 Saturation Cancelled ABG Base Excess Cancelled FiO2 Cancelled Sodium 147 H 134 L D Potassium 3.0 L 3.0 L Chloride 106 101 Carbon Dioxide 27 29 BUN 16 22 H Creatinine 0.52 0.63 Estimated GFR > 60.0 > 60.0 BUN/Creatinine Ratio 30.8 H 34.9 H Glucose 138 H 100 Calcium 6.9 L 8.2 L Total Bilirubin 0.3 0.3 AST 35 32 ALT 51 H 51 H Alkaline Phosphatase 43 46 Total Protein 5.6 L 6.1 L Albumin 2.8 L 3.2 L Globulin 2.8 2.9 Albumin/Globulin Ratio 1.0 1.1 11/13/21 11/13/21 08:44 10:48 ABG pH 7.49 H 7.48 H ABG pCO2 34.9 L 36.6 ABG pO2 61 L 53 L ABG HCO3 26 27 H ABG Total CO2 27 28 ABG O2 Saturation 93 L 89 L ABG Base Excess 3.0 H 4.0 H FiO2 60 50 Sodium Potassium Chloride Carbon Dioxide BUN Creatinine Estimated GFR BUN/Creatinine Ratio Glucose Calcium Total Bilirubin AST ALT Alkaline Phosphatase Total Protein Albumin Globulin Albumin/Globulin Ratio Exam Vital Signs (past 8 hours): - 11/13/21 05:00 11/13/21 06:00 Temperature 98.4 F Pulse Rate 85 Respiratory Rate 26 H 26 H Blood Pressure 147/76 H 164/84 H Pulse Oximetry 97 96 Fraction of Inspired Oxygen 50 Oxygen Delivery Method Mechanical Ventilation Oxygen Flow Rate 60 Quality TeleICU VTE Deep Vein Thrombosis/Pulmonary Embolism Present on Admission: No Assessment & Plan Assessment & Plan narrative: Assessment & Plan narrative: RESP: # Acute hypoxemia respiratory failure -- Secondary to COVID pneumonia -- Day 2 vent -- Vent adjsuted to 22/400/13/50%, DP 13, ABG reviewed, trend ABG for any changes in HD or Resp status - Daily CXR and ABG -- Sedation Propfol, versed and fentany + off Nimbex -- IV lasix 40 mg bid, goal -1L/ day, adjust the dose based on that -- Sever ARDS/ PF ratio<100. Recommended proning if feasible but not feasible at the current institution bec of Wt, pending transfer to higher level of care institution CVS Sedation induced hypotension, resolved, off levo MAP goal of 65 ID: # COVID PNA -- Trend CRP, LDH, ferritin, and LFTs -- Risk factors -> morbid obesity -- Cont remdesivir, baricitinib and decadron -- Mildly elevated LFT. Daily CMP and adjsut or Dc meds accordingly PPX -- On lovenox 40 BID -- On IV PPI -- On strict contact, droplet/airborne, eye protection, and critical meticulous hand hygiene ENDO: -- Goal BS < 180 GI OGT, tube feed at goal D/w RN and RT cct 50 min Time Spent With Patient Critical Care time: I spent a total of [] minutes of critical care time on this patient's care today; this time is exclusive of procedural time.
[2021-11-13 13:41] LABS: BUN Creatinine Ratio 28.6 (6-22); Blood Urea Nitrogen 20 mg/dL (7-17); Calcium 8.2 mg/dL (8.4-10.2); Carbon Dioxide 29 mmol/L (22-32); Chloride 101 mmol/L (98-107); Estimated Glomerular Filt Rate > 60.0 mL/min (>60); Glucose 146 mg/dL (70-100); HEMOLYSIS 28 (0-50); Magnesium 2.7 mg/dL (1.6-2.3); Potassium 4.4 mmol/L (3.4-5.1); Sodium 136 mmol/L (137-145)
--- NOTE | 2021-11-13 13:52 | PM.DS.1 ---
History of Present Illness History of Present Illness Chief complaint: covid+/sob cough x5 days Narrative: Per Dr. Worthy: 36 y/o unvaccinated? female with Morbid Obesity diagnosed with Covid about one week ago. ( By her PCP). She has had cough, fever, shortness of breath, headache, nausea, and diarrhea. The patient obtained a home O2 sat monitor and noted that her oxygen level fell to 80%. She was becoming more short of breath and presented to the ED for further evaluation.? In the Emergency Department, she was given decadron and remdesivir. She was initially placed on 6 liters of oxygen but continue to desaturate, she was then placed on 50% High flow oxygen at 50 Liters with improvement of her oxygenation. HER WBC is 4.4, D-dimer less than 200, ? Chest Xray reveals the following: Mild cardiomegaly with findings suggestive of pulmonary edema/CHF.? Concurrent infectious or inflammatory process not excluded if clinically appropriate. ?Patient is admitted to the hospital for inpatient treatment of acute hypoxic respiratory failure secondary to Covid-19 pneumonia. Discharge Providers Provider Date of admission: 11/08/21 09:56 Discharge Date: 11/13/21 Consults: 11/08/21 14:12 Consult to Dietitian, Adult Routine Comment: morbid obesity Reason For Exam: as above-dietary counseling 11/12/21 13:06 Consult to Dietitian, Adult Routine Comment: Reason For Exam: PLEASE ASSESS FOR TUBE FEEDING DIET RECOMMENDATION Discharge provider: Jean Mendoza MD Summary Hospital Course Discharge Diagnosis: 1. Acute hypoxemic respiratory failure secondary to COVID pneumonia 2. Anxiety 3. Morbid obesity 4. Hypokalemia 5. Epistaxis Hospital Course: Ms. Garibay came in to the hospital after a week of feeling ill. She was admitted on 11/08. She was known COVID pneumonia. She was initially on heated high flow nasal cannula. She had worsening respiratory distress and hypoxemia. She did have intermittent epistaxis on 11/11. Due to prolonged hypoxemia in the 80s despite trial of max setting of heated high flow, CPAP, nonrebreather. She was intubated morning of 11/12. She was initially on fentanyl, propofol. She had initial hypoxemia and was deeply sedated and then paralyzed with vecuronium. Her saturation improved. Night of 11/12 vecuronium was stopped. She was started on midazolam drip. She was initial setting TV 400 PEEP 16 FIO2 100 RR 26. Follow up abg showed she had pH 7.48, she had respiratory rate reduced to 22. Fio2 was able to be weaned down to 50%, pao2 was in the 50s, spo2 in the low to mid 90s. PEEP was decreased to 13. She was noted on day of discharge to be 1L net positive on admission, was previously on 20IV lasix, and increased on 11/13 to 40mg IV BID. She had potassium of 3.0 am of 11/13, and ordered for 40 IV potassium and 60 oral potassium. She has BMI of 55, weight 171kg. She was unable to be proned at this hospital. Because of this she was transferred to higher level care due to mortality benefit with proning. Due to her epistaxis her dvt prophylaxis was held 11/12, but epistaxis resolved, and was restarted 11/13. For her COVID pneumonia she was treated with remdesivir, dexamethasone, baricitinib. CODE: Full Proxy: Koby Daugherty, life partner [phone] Exam Vital Signs (past 8 hours): - 11/13/21 06:00 11/13/21 07:00 11/13/21 08:00 Temperature 100.2 F H Pulse Rate 85 87 90 Respiratory Rate 26 H 26 H 26 H Blood Pressure 164/84 H 100/55 L 104/56 L Pulse Oximetry 96 97 98 11/13/21 09:00 11/13/21 10:00 11/13/21 11:00 Temperature 99 F Pulse Rate 104 H 80 81 Respiratory Rate 28 H 22 22 Blood Pressure 113/55 L 89/50 L 89/46 L Pulse Oximetry 89 L 97 92 11/13/21 12:00 Temperature Pulse Rate 75 Respiratory Rate 22 Blood Pressure 115/63 Pulse Oximetry 95 Fraction of Inspired Oxygen 50 Oxygen Delivery Method Mechanical Ventilation Oxygen Flow Rate 60 Narrative Exam Narrative: GEN: intubated CV: regular rate and rhythm, no murmurs PULM: poor air movement bilaterally, coarse breath sounds ABD: soft, nontender, nondistended, no organomegaly EXT: warm and well perfused with no edema NEURO: coughing, uncomfortable on the vent Objective Labs Result Diagrams: 11/12/21 04:30 11/13/21 04:30 Labs: Laboratory Results - last 24 hr 11/12/21 11/12/21 11/13/21 13:27 16:10 04:30 ABG pH Cancelled ABG pCO2 Cancelled ABG pO2 Cancelled ABG HCO3 Cancelled ABG Total CO2 Cancelled ABG O2 Saturation Cancelled ABG Base Excess Cancelled FiO2 Cancelled Sodium 147 H 134 L D Potassium 3.0 L 3.0 L Chloride 106 101 Carbon Dioxide 27 29 BUN 16 22 H Creatinine 0.52 0.63 Estimated GFR > 60.0 > 60.0 BUN/Creatinine Ratio 30.8 H 34.9 H Glucose 138 H 100 Calcium 6.9 L 8.2 L Magnesium Total Bilirubin 0.3 0.3 AST 35 32 ALT 51 H 51 H Alkaline Phosphatase 43 46 Total Protein 5.6 L 6.1 L Albumin 2.8 L 3.2 L Globulin 2.8 2.9 Albumin/Globulin Ratio 1.0 1.1 11/13/21 11/13/21 11/13/21 08:44 10:48 13:15 ABG pH 7.49 H 7.48 H ABG pCO2 34.9 L 36.6 ABG pO2 61 L 53 L ABG HCO3 26 27 H ABG Total CO2 27 28 ABG O2 Saturation 93 L 89 L ABG Base Excess 3.0 H 4.0 H FiO2 60 50 Sodium Potassium Chloride Carbon Dioxide BUN Creatinine Estimated GFR > 60.0 BUN/Creatinine Ratio Glucose Calcium Magnesium Total Bilirubin AST ALT Alkaline Phosphatase Total Protein Albumin Globulin Albumin/Globulin Ratio 11/13/21 13:15 ABG pH ABG pCO2 ABG pO2 ABG HCO3 ABG Total CO2 ABG O2 Saturation ABG Base Excess FiO2 Sodium Potassium Chloride Carbon Dioxide BUN Creatinine Estimated GFR BUN/Creatinine Ratio Glucose Calcium Magnesium 2.7 H Total Bilirubin AST ALT Alkaline Phosphatase Total Protein Albumin Globulin Albumin/Globulin Ratio [facility] Medical History (Updated 11/11/21 @ 11:04 by Wilman Valdes MD) COVID-19 Family History (Updated 11/08/21 @ 12:53 by Damari Worthy MD) Mother Skin cancer Social History household members: spouse and family Smoking Status: Never smoker alcohol intake: current Discharge Plan Discharge Plan Disposition: [facility] VTE Deep Vein Thrombosis/Pulmonary Embolism Present on Admission: No
[2021-11-13 14:03] LABS: HCO3 ABG 28 mmol/L (22-26); Oxygen Saturation ABG 91 % (95-100); PCO2 ABG 40.2 mmHg (35-45); PO2 ABG 59 mmHg (80-100); TCO2 ABG 29 mmol/L (21-31); pH ABG 7.44 (7.35-7.45)
[2021-11-13 14:04] LABS: Fractionated Inspired Oxygen 50
--- NOTE | 2021-11-13 15:56 | PC.NURSE ---
Addendum entered by Edward Hays R.N. 11/13/21 16:58: Update given to S/o Koby. Belongings given to pt's mom Puja. Addendum entered by Edward Hays R.N. 11/13/21 16:30: Pt left at 1625 with transport team (IV sedation infusing, intubated to vent, soft wrist restraints to bilateral wrists). Transport team states they can only take a few belongings. Sent pt with wallet, phone, phone charge, and glasses. Notified pt's mom puja that other belongings need to be picked up. She verbalizes understanding. Addendum entered by Edward Hays R.N. 11/13/21 16:16: Pulled additional propofol bottle from [employer] and gave to transport team per their request. Addendum entered by Edward Hays R.N. 11/13/21 16:15: Spoke with receiving RN at [facility] ([facility]). Gave report. Gave [facility] phone numbers for pt's mom and life partner. Original Note: Transport team here. Report given to transportation lead. Belongings given to transport team. Pt's mom given update that pt will be transferring to [facility] soon. Reviewed visitor policy for [facility]. Pt's mom verbalizes understanding.
== END 2021-11-13 16:25 | disposition short-term general hospital (02) | DRG 137 ==
LOC: ED 22:51 → AC 11-08 09:57 → ICU 11-08 15:22
PROVIDERS: Family Medicine; Internal Medicine; Internal Medicine Critical Care Medicine; Internal Medicine Pulmonary Disease; Admitting Provider Internal Medicine; Emergency Provider Emergency Medicine; Referring Provider Emergency Medicine; Visit Provider Internal Medicine
DX: U07.1 COVID-19 (principal); J12.82 Pneumonia due to coronavirus disease 2019; J96.01 Acute respiratory failure with hypoxia; E66.01 Morbid (severe) obesity due to excess calories; Z68.43 Body mass index [BMI] 50.0-59.9, adult; F41.9 Anxiety disorder, unspecified; R04.0 Epistaxis; E87.0 Hyperosmolality and hypernatremia; I95.2 Hypotension due to drugs; T41.295A Adverse effect of other general anesthetics, initial encounter; M25.551 Pain in right hip; E87.6 Hypokalemia
CPT/HCPCS: 36415; 36569; 36591; 36592; 36600; 71045; 80048; 80053; 82728; 82805; 82962; 83605; 83615; 83735; 84132; 84145; 84443; 85025; 85027; 85379; 87070; 87205; 87635; 87797; 93005; 93010; 93970; 94002; 94003; 94660; 94799; 96361; 96365; 96366; 96375; 99285; C9803; C9113; J1100; J1650; J1940; J2060; J2250; J2704; J3010

== ENCOUNTER 2023-12-15 18:00 | Emergency (ER) | payer OTHER, MEDICAID, SELFPAY ==
[2021-11-08 15:12] VITALS: BMI 55.6
[2021-11-13 14:30] VITALS: PULSE 69; RESP 22; O2SAT 95
[2023-12-15 18:01] VITALS: BP 169/101; PULSE 96; RESP 15; TEMP 36.8; O2SAT 97; BMI 53.8
[2023-12-15 18:05] VITALS: BP 169/101; PULSE 95; O2SAT 96
--- NOTE | 2023-12-15 18:07 | DI.RAD.S_ITS ---
PROCEDURE: XR CHEST 1V INDICATIONS: chest pain TECHNIQUE: One view of the chest was acquired. COMPARISON: Located [facility], CR, XR CHEST 1V, 11/13/2021, 11:08. Located Within [facility], CR, XR CHEST 1V, 11/12/2021, 9:48. FINDINGS: Surgical changes and devices: None. Lungs and pleura: Lungs are clear. No pleural effusions or pneumothorax. Mediastinum: Mediastinal contours appear normal. Heart size is enlarged. Bones and chest wall: No suspicious bony lesions. Overlying soft tissues appear unremarkable. IMPRESSION: No acute cardiopulmonary abnormality is seen. Dictated by: Rei Arreola M.D. on 12/15/2023 at 18:21 Approved by: Rei Arreola M.D. on 12/15/2023 at 18:22
[2023-12-15 18:26] LABS: INR 0.9 (0.9-1.3); Prothrombin Time 10.1 SECONDS (9.4-12.5)
--- NOTE | 2023-12-15 18:26 | ED.CHESTPAIN ---
HPI - Chest Pain General Chief Complaint: Chest Pain Stated Complaint: chest pain Time Seen by Provider: 12/15/23 18:09 Source: patient Mode of arrival: Ambulatory Limitations: no limitations History of Present Illness HPI narrative: 38-year-old female with history of fibromyalgia presents by private vehicle from home for central stinging chest pain that radiates to her upper back and shoulders. Patient states that she woke up this morning with her heart pounding and the sensation of palpitations. The symptoms went away on their own, however subsequently she noticed the chest pain. It persisted throughout the day and so she decided to present for evaluation. Nothing seems to make it better or worse. She states she has never had anything like this before. Denies history of heart problems. Related Data Home Medications Medication Instructions Recorded Confirmed diclofenac sodium 75 mg 75 mg PO BID 11/08/21 11/08/21 tablet,delayed release methocarbamol 750 mg tablet 750 mg PO Q6HR PRN muscle 11/08/21 11/08/21 spasm/pain Allergies Allergy/AdvReac Type Severity Reaction Status Date / Time No Known Drug Allergies Allergy Verified 12/15/23 18:09 Review of Systems Review of Systems Narrative: Negative except as noted above Patient History Medical History (Updated 12/15/23 @ 19:18 by Iris Hastings MD) COVID-19 Family History (Updated 11/08/21 @ 12:53 by Damari Worthy MD) Mother Skin cancer Social History household members: spouse and family Smoking Status: Never smoker alcohol intake: current Smoking Status: Never smoker alcohol intake frequency: a few times a month Substance Use Type: does not use Exam Initial Vital Signs Initial Vital Signs: Vital Signs Temperature 98.3 F 12/15/23 18:01 Pulse Rate 96 H 12/15/23 18:01 Respiratory Rate 15 12/15/23 18:01 Blood Pressure 169/101 H 12/15/23 18:01 Pulse Oximetry 97 12/15/23 18:01 Oxygen Delivery Method Room Air 12/15/23 18:01 Const: Awake, alert, no acute distress, nontoxic appearing Eyes: PERRL, EOMI, conjunctiva normal ENT: Atraumatic, dentition normal, mucous membranes moist Cardiac: regular rate, regular rhythm RESP: unlabored, clear bilaterally, no wheezing GI: Atraumatic, soft, nontender, nondistended, no rebound, no guarding MSK: Atraumatic, full range of motion, pulses equal Skin: Warm, Dry, intact, no rashes Neuro: AO x3, CN II-XII grossly intact, moves all extremities Psych: affect normal, mood normal, not suicidal, not homicidal Course Orders Ordered: ED Orders 12/15/23 17:02 EKG-12 Lead Stat 12/15/23 18:07 XR chest 1V Stat 12/15/23 18:10 Complete Blood Count AUTO DIFF Stat Comprehensive Metabolic Panel Stat Lipase Stat Magnesium Stat PTT Partial Thromboplastin Miguel Angel Stat Prothrombin Time INR Stat TSH [Thyroid Stimulating Hormone] Stat Troponin & CK Cardiac Panel Stat Discontinued Medications Aspirin (Aspirin 81 Mg Chew Tab) 324 mg PO NOW ONE Stop: 12/15/23 18:08 Last Admin: 12/15/23 18:36 Dose: 324 mg Documented By: RB Vital Signs Vital signs: Vital Signs - 8 hr 12/15/23 18:01 12/15/23 18:05 12/15/23 18:05 Temperature 98.3 F Pulse Rate 96 H 95 H Respiratory Rate 15 Blood Pressure 169/101 H 169/101 H Pulse Oximetry 97 96 Oxygen Delivery Method Room Air 12/15/23 18:30 12/15/23 18:30 12/15/23 18:52 Temperature Pulse Rate 84 87 Respiratory Rate 20 16 Blood Pressure 143/72 H Pulse Oximetry 95 96 Oxygen Delivery Method 12/15/23 18:52 12/15/23 19:00 12/15/23 19:00 Temperature Pulse Rate 87 Respiratory Rate 17 Blood Pressure 139/83 134/80 Pulse Oximetry 96 Oxygen Delivery Method MDM - Chest Pain Differential Diagnosis Differential diagnosis: Likely pneumothorax, atypical chest pain and costochondritis Lab Data 12/15/23 18:10 12/15/23 18:10 Labs: Lab Results 12/15/23 Range/Units 18:10 WBC 7.3 (4.5-11.0) X10^3/uL RBC 4.80 (4.0-5.2) X10^6/uL Hgb 13.7 (12.0-16.0) g/dL Hct 40.6 (36-46) % MCV 84.5 (80-100) fL MCH 28.5 (26-34) PG MCHC 33.7 (30-36) % RDW 14.6 (11.6-14.8) % Plt Count 282 (150-400) X10^3/uL Neut % (Auto) 59.7 (50-75) % Lymph % (Auto) 34.8 (25-40) % [place] % (Auto) 3.8 (3-14) % Eos % (Auto) 0.8 L (2-4) % Baso % (Auto) 0.9 (0-2) % Neut # (Auto) 4300 (4581-4801) /uL Lymph # (Auto) 2500 (0842-4237) /uL [place] # (Auto) 300 (0-900) /uL Eos # (Auto) 100 (0-450) /uL Baso # (Auto) 100 (0-100) /uL PT 10.1 (9.4-12.5) SECONDS INR 0.9 (0.9-1.3) APTT 34 (25.1-36.5) SECONDS Sodium 137 (137-145) mmol/L Potassium 4.1 (3.4-5.1) mmol/L Chloride 102 (98-107) mmol/L Carbon Dioxide 25 (22-32) mmol/L BUN 14 (7-17) mg/dL Creatinine 0.57 (0.52-1.04) mg/dL Estimated GFR > 60 (>60) mL/min BUN/Creatinine Ratio 24.6 H (6-22) Glucose 91 (70-100) mg/dL Calcium 9.2 (8.4-10.2) mg/dL Magnesium 2.0 (1.6-2.3) mg/dL Total Bilirubin 0.5 (0.2-1.3) mg/dL AST 22 (14-36) IU/L ALT 21 (<35) IU/L Alkaline Phosphatase 73 (38-126) U/L Total Creatine Kinase 81 (30-135) U/L Troponin I < 0.012 (0.01-0.034) ng/mL Total Protein 7.7 (6.3-8.2) g/dL Albumin 4.1 (3.5-5.0) g/dL Globulin 3.6 (1.7-4.1) g/dL Albumin/Globulin Ratio 1.1 (1.0-2.8) Lipase 86 (23-300) U/L TSH 3.11 (0.47-4.68) uIU/mL ECG Data Interpretation: Normal sinus rhythm, rate 82bpm . Normal intervals, no ST-T wave changes, no stemi MDM Narrative Medical decision making narrative: Well-appearing patient with a 1 day of chest pain. Physical exam is unremarkable, patient is currently normal sinus rhythm with average beats per minute in the 80s. Laboratory work is significant for undetectable troponins, normal TSH values. EKG nonischemic, chest x-ray unremarkable. Patient informed of lab and imaging results, she was relieved that her labs appeared to be normal and we will follow up with primary care physician. ED return precautions discussed at bedside. Patient expressed understanding of the plan and is in agreement at this time. All questions answered at the time of discharge. Discharge Plan Departure Patient Disposition: Home Clinical Impression: Chest pain Instructions: DI for Chest Pain Activity Restrictions/Additional Instructions: Your laboratory work, EKG, chest X ray were normal today. Please follow-up with your primary care physician if he continues to experience symptoms. Please return in the emergency department for any new or worsening symptoms of your chest pain. Prescriptions: No Action methocarbamol 750 mg tablet 750 mg PO Q6HR PRN (Reason: muscle spasm/pain) Patient Comments: TAKE ONE(1) TABLET BY MOUTH EVERY SIX(6) HOURS NEEDED FOR MUSCLE SPASMS diclofenac sodium 75 mg tablet,delayed release (DR/EC) 75 mg PO BID Patient Comments: TAKE ONE(1) TABLET BY MOUTH TWO(2) TIMES DAILY Stand Alone Forms: Patient Portal/API
[2023-12-15 18:27] LABS: Add Manual Diff / Slide Review NO; Basophils Absolute Auto 100 /uL (0-100); Basophils Percent Auto 0.9 % (0-2); Eosinophils Absolute Auto 100 /uL (0-450); Eosinophils Percent Auto 0.8 % (2-4); Hematocrit 40.6 % (36-46); Hemoglobin 13.7 g/dL (12.0-16.0); Lymphocytes Absolute Auto 2500 /uL (1100-4500); Lymphocytes Percent Auto 34.8 % (25-40); Mean Corpuscular HGB Conc 33.7 % (30-36); Mean Corpuscular Hemoglobin 28.5 PG (26-34); Mean Corpuscular Volume 84.5 fL (80-100); Monocytes Absolute Auto 300 /uL (0-900); Monocytes Percent Auto 3.8 % (3-14); Neutrophils Absolute Auto 4300 /uL (1500-7000); Neutrophils Percent Auto 59.7 % (50-75); Platelet Count 282 X10^3/uL (150-400); Red Cell Distribution Width 14.6 % (11.6-14.8); White Blood Cell Count 7.3 X10^3/uL (4.5-11.0)
[2023-12-15 18:29] LABS: PTT Partial Thromboplastin Tim 34 SECONDS (25.1-36.5)
[2023-12-15 18:30] VITALS: BP 143/72; PULSE 84; RESP 20; O2SAT 95
[2023-12-15 18:35] LABS: Alanine Aminotransferase 21 IU/L (<35); Albumin 4.1 g/dL (3.5-5.0); Albumin Globulin Ratio 1.1 (1.0-2.8); Alkaline Phosphatase 73 U/L (38-126); Aspartate Aminotransferase 22 IU/L (14-36); BUN Creatinine Ratio 24.6 (6-22); Bilirubin Total 0.5 mg/dL (0.2-1.3); Blood Urea Nitrogen 14 mg/dL (7-17); Calcium 9.2 mg/dL (8.4-10.2); Carbon Dioxide 25 mmol/L (22-32); Chloride 102 mmol/L (98-107); Creatine Kinase 81 U/L (30-135); Estimated Glomerular Filt Rate > 60 mL/min (>60); Globulin 3.6 g/dL (1.7-4.1); Glucose 91 mg/dL (70-100); HEMOLYSIS 28 (0-50); Lipase 86 U/L (23-300); Potassium 4.1 mmol/L (3.4-5.1); Sodium 137 mmol/L (137-145); Total Protein 7.7 g/dL (6.3-8.2)
[2023-12-15] MEDS: ASPIRIN 81 MG CHEW TAB 324 MG PO (18:36)
[2023-12-15 18:47] LABS: Troponin I < 0.012 ng/mL (0.01-0.034)
[2023-12-15 18:52] VITALS: BP 139/83; PULSE 87; RESP 16; O2SAT 96
[2023-12-15 19:00] VITALS: BP 134/80; PULSE 87; RESP 17; O2SAT 96
[2023-12-15 19:10] LABS: Thyroid Stimulating Hormone 3.11 uIU/mL (0.47-4.68)
== END 2023-12-15 19:28 | disposition home or self-care (01) ==
PROVIDERS: Emergency Provider Emergency Medicine
DX: R07.9 Chest pain, unspecified (principal); R00.2 Palpitations
CPT/HCPCS: 36415; 71045; 80053; 82550; 83690; 83735; 84443; 84484; 85025; 85610; 85730; 93005; 99284

== ENCOUNTER → 2025-09-21 11:14 | Outpatient (CLI) | payer OTHER, SELFPAY ==
[2021-11-08 15:12] VITALS: BMI 55.6
[2021-11-13 14:30] VITALS: PULSE 69; RESP 22; O2SAT 95
--- NOTE | 2025-09-21 11:16 | DI.MG.S_ITS ---
MM screening mammo BI: 09/21/2025. BI-RADS: 1 CLINICAL: 40-year old female for bilateral screening mammogram. Tyrer-Cuzick lifetime risk of 19.5%. No personal or first-degree family history of breast cancer. PRIOR EXAMS: None. This is a baseline mammogram. MAMMOGRAPHY TECHNIQUE: 2D and 3D (tomosynthesis) digital mammographic views obtained, with additional images as needed for full coverage. Current study was also evaluated with a Computer Aided Detection (CAD) system. DENSITY C. The breasts are heterogeneously dense, which may obscure small masses. MAMMOGRAPHY FINDINGS Bilateral: No suspicious mass, asymmetry, microcalcification, or other abnormality seen. IMPRESSION: * No evidence of malignancy. RECOMMENDATIONS Bilateral * Annual screening mammography. OVERALL ASSESSMENT CATEGORY BI-RADS-1: Negative. [employer] recommends annual screening mammography beginning at age 40 for women with average risk of breast cancer. ELECTRONICALLY SIGNED: Alexus Whitaker M.D. on 09/21/2025 at 06:13:54 PM PT Interpreting Station ID: [id number]
== END ==
LOC: MAMMO 11:16
PROVIDERS: PCP Nurse Practitioner Family; Referring Provider Physician Assistant; Visit Provider Physician Assistant
DX: Z12.31 Encounter for screening mammogram for malignant neoplasm of breast (principal); R92.333 Mammographic heterogeneous density, bilateral breasts
CPT/HCPCS: 77063; 77067

== ENCOUNTER → 2025-10-12 08:34 | Outpatient (CLI) | payer OTHER, SELFPAY ==
[2021-11-08 15:12] VITALS: BMI 55.6
[2021-11-13 14:30] VITALS: PULSE 69; RESP 22; O2SAT 95
[2025-10-12 09:51] LABS: Hemoglobin A1C% w Est Avg Glu 5.0 % (4.0-6.0)
[2025-10-12 09:55] LABS: Follicle Stimulating Hormone 7.61 mIU/mL
[2025-10-12 10:11] LABS: Estradiol, Total 180.5 pg/mL; TSH w/ Reflex to FT4 2.57 uIU/mL (0.47-4.68)
== END ==
PROVIDERS: PCP Physician Assistant; Referring Provider Obstetrics & Gynecology; Visit Provider Obstetrics & Gynecology
DX: N93.9 Abnormal uterine and vaginal bleeding, unspecified (principal); E03.8 Other specified hypothyroidism
CPT/HCPCS: 36415; 82670; 83001; 83036; 84146; 84443